=== PATIENT | male | born 1955 | race Caucasian/White ===

== ENCOUNTER 2017-09-21 18:55 | Inpatient (IN) | payer OTHER ==
[~2017-09-21] VITALS: Ht 193 cm; Wt 85.7 kg
[2017-09-21] MEDS ORDERED: SODIUM CHLORIDE 0.9% 1000ML 1,000 ML IV ONE ×2 (19:45→21:30)
[2017-09-21] MEDS ORDERED: OPTIRAY 320 IV PRN (19:45)
--- NOTE | 2017-09-21 19:45 | EMERGENCY ROOM VISIT NOTE ---
ED Visit Note First contact with patient: 19:16 The patient was seen and examined with Fariba Belcher PA-C. I agree with the history, physical and findings. Please see the note for disposition and details.
[2017-09-21] MEDS ORDERED: PATIENT'S ALLERGY INFO NEEDS ENTERED SCH (20:00)
[2017-09-21 20:16] LABS: ISTAT CREATININE 4.3 mg/dl (0.6-1.3); ISTAT IONIZED CALCIUM 1.13 mmol/l (1.12-1.32); ISTAT POTASSIUM 5.1 mEq/L (3.3-5.0)
[2017-09-21 20:19] LABS: HEMATOCRIT 48.4 % (42-52); HEMOGLOBIN 16.8 g/dL (14.0-18.0); MEAN CELL VOLUME 83.2 fL (80-100); MEAN CORPUSCULAR HEMOGLOBIN 28.9 pg (25-34); MEAN CORPUSCULAR HGB CONC 34.7 g/dl (32-36); MEAN PLATELET VOLUME 10.9 fL (7.4-10.4); PLATELET COUNT 126 K/uL (130-400); RED CELL DISTRIBUTION WIDTH CV 14.6 % (11.5-14.5); WHITE BLOOD COUNT 21.68 K/uL (4.8-10.8)
[2017-09-21 20:25] LABS: INR 1.1 (0.9-1.1)
[2017-09-21 20:39] LABS: ALBUMIN 4.3 gm/dl (3.4-5.0); CALCIUM 8.8 mg/dl (8.5-10.1); CREATININE 4.04 mg/dl (0.60-1.40)
--- NOTE | 2017-09-21 20:55 | DIAGNOSTIC IMAGING REPORT ---
CT OF THE HEAD WITHOUT CONTRAST CLINICAL HISTORY: Fall. Altered mental status. COMPARISON STUDY: No previous studies for comparison. TECHNIQUE: Helical axial images of the head were obtained without IV contrast. Automated exposure control was utilized for the study. A dose lowering technique was utilized adhering to the principles of ALARA. FINDINGS: No acute intracranial hemorrhage, midline shift or mass effect is present. Ventricular system is unremarkable. Basilar cisterns are patent. Note is made of a 1.3 cm hypodensity which projects over the right lateral ventricle and right thalamus. This is chronic and of doubtful significance. Cerebellar atrophy is noted. There are no findings to suggest acute dural sinus thrombosis or acute territorial infarct. Postoperative findings within the left mastoid air cells are noted. There is no calvarial fracture. IMPRESSION: 1. No acute intracranial findings. 2. No calvarial fracture. Electronically signed by: Bolivar Owusu M.D. 09/21/2017 8:54 PM Dictated Date/Time: 09/21/2017 8:51 PM
[2017-09-21 20:59] LABS: INFLUENZA B ANTIGEN Neg for Influ B (NEG)
--- NOTE | 2017-09-21 20:59 | DIAGNOSTIC IMAGING REPORT ---
CT OF THE CERVICAL SPINE WITHOUT CONTRAST CLINICAL HISTORY: fall ? head/neck injury COMPARISON STUDY: No previous studies for comparison. TECHNIQUE: Helical axial images of the cervical spine were obtained without IV contrast. Sagittal and coronal reconstructions were viewed. A dose lowering technique was utilized adhering to the principles of ALARA. FINDINGS: Alignment of the cervical spine is anatomic. The craniocervical junction is intact. There is no acute cervical spine fracture. Facet joints are intact. There is no prevertebral edema. There is mild multilevel disc space narrowing with moderate osteophytosis and moderate multilevel facet arthrosis. IMPRESSION: No acute cervical spine fracture or subluxation. Electronically signed by: Bolivar Owusu M.D. 09/21/2017 8:58 PM Dictated Date/Time: 09/21/2017 8:55 PM
--- NOTE | 2017-09-21 21:08 | DIAGNOSTIC IMAGING REPORT ---
CT OF THE ABDOMEN AND PELVIS WITHOUT CONTRAST CLINICAL HISTORY: Altered mental status. Epigastric pain. COMPARISON STUDY: No previous studies for comparison. TECHNIQUE: Axial images of the abdomen and pelvis were obtained without IV contrast. Images were reviewed in the axial, sagittal, and coronal planes. A dose lowering technique was utilized adhering to the principles of ALARA. FINDINGS: Visualized portions of the lower chest demonstrate asymmetric atrophy of the left pectoralis muscle. The left upper extremity is not present as shown on wheel assembler tomogram. Evaluation of the abdomen and pelvis is suboptimal on this unenhanced exam. No pneumatosis, free air or portal venous gas is present. No biliary or pancreatic ductal dilatation is present. There are multiple gallstones. There is mild pericholecystic infiltration. There is no evidence for a bowel obstruction. No lymphadenopathy is present. There is no ascites. Chronic deformity of the right hip is noted with moderate to severe arthritis. No acute fracture within the lumbar spine or pelvis is identified. There is no hemoperitoneum. IMPRESSION: 1. Cholelithiasis and mild pericholecystic infiltration highly suggestive of acute cholecystitis. 2. No bowel obstruction. Electronically signed by: Bolivar Owusu M.D. 09/21/2017 9:06 PM Dictated Date/Time: 09/21/2017 8:58 PM
--- NOTE | 2017-09-21 21:17 | EMERGENCY ROOM VISIT NOTE ---
History First contact with patient: 19:16 Chief Complaint: FALL Stated Complaint: HEAD PAIN History of Present Illness The patient is a 62 year old male who presents to the Emergency Room with complaints of fall and altered mental status that occurred earlier today. The patient has a history of CVA in 1988. He has residual left-sided weakness. He typically is able to get around on his own. The patient apparently had a fall near his bed. His said he was reportedly normal at approximately 7:50 AM this morning. She found him when she got off of work between 5 and 6 PM The patient is currently altered. The history is therefore limited. He is able to tell me that he is having some pain in his right hip. He also says that he was dizzy prior to his fall. He denies any chest pain or difficulty breathing. No recent illnesses. The patient's notes that he was incontinent of stool, which is very unusual. He has also been very drowsy-also unusual. 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 Social History Smoking Status: Former Smoker Housing Status: lives with family Current/Historical Medications No Active Prescriptions or Reported Meds Physical Exam Vital Signs Date Time Temp Pulse Resp B/P (MAP) Pulse Ox O2 Delivery O2 Flow Rate FiO2 09/21/17 23:31 90 20 116/76 99 Room Air 09/21/17 23:00 133/75 09/21/17 22:57 90 09/21/17 22:55 90 20 99 09/21/17 22:30 129/81 09/21/17 22:13 113/70 09/21/17 21:55 89 23 97 09/21/17 20:55 86 23 97 09/21/17 20:54 85 20 129/83 96 Room Air 09/21/17 19:10 36.5 90 20 151/94 96 Room Air Physical Exam VITALS: Vitals are noted on the nurse's note and reviewed by myself. Vital signs stable. GENERAL: 62-year-old male, appears older than stated age, very drowsy, thin, SKIN: Ecchymosis noted to the right lateral hip. There are areas of blotchy edema to the dorsal aspect of the feet bilaterally. There is also petechiae on the heels bilaterally. HEAD: Normocephalic atraumatic. Muscle wasting noted EYES: Pupils equal round and reactive to light and accommodation. Conjunctivae are significantly injected bilaterally. Extraocular muscles intact. MOUTH: Mucous membranes dry. NECK: Supple without nuchal rigidity. No lymphadenopathy. Cervical spine is nontender. No JVD. HEART: Regular rate and rhythm without murmurs gallops or rubs. LUNGS: Clear to auscultation bilaterally without wheezes, rales or rhonchi. No accessory muscle use. ABDOMEN: Bowel sounds present, but hypoactive. Tenderness to palpation in the epigastric region. Without organomegaly. No guarding or rebound tenderness. MUSCULOSKELETAL: Strength of the right upper extremity is 5/5. Strength of the right lower extremity is 5/5. Strength left lower extremity 2/5. Exam is limited as the patient is only following some commands. Mild tenderness to palpation over the dorsal aspect of the feet bilaterally. NEURO: Patient was alert and answering some questions appropriately. Left- sided weakness noted. Following intermittent commands. Slurred speech. Medical Decision & Procedures ER Provider Diagnostic Interpretation: hip/pelvis/femur/foot xrays IMPRESSION: No acute fracture or dislocation within the left foot. Electronically signed by: Bolivar Owusu M.D. 09/21/2017 9:49 PM Dictated Date/Time: 09/21/2017 9:48 PM The status of this report is Signed. Draft = Not yet reviewed or approved by Radiologist. Signed = Reviewed and approved by Radiologist. IMPRESSION: No acute fracture or dislocation within the right foot. Electronically signed by: Bolivar Owusu M.D. 09/21/2017 9:48 PM Dictated Date/Time: 09/21/2017 9:46 PM IMPRESSION: 1. No acute fracture of the right femur. 2. 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 Electronically signed by: Bolivar Owusu M.D. 09/21/2017 9:46 PM Dictated Date/Time: 09/21/2017 9:45 PM IMPRESSION: 1. No acute fracture of the right femur. 2. 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 Electronically signed by: Bolivar Owusu M.D. 09/21/2017 9:46 PM Dictated Date/Time: 09/21/2017 9:45 PM CXR IMPRESSION: 1. No acute cardiopulmonary findings. 2. Cholelithiasis. Electronically signed by: Bolivar Owusu M.D. 09/21/2017 9:43 PM Dictated Date/Time: 09/21/2017 9:[address] without contrast IMPRESSION: 1. No acute intracranial findings. 2. No calvarial fracture. Electronically signed by: Bolivar Owusu M.D. 09/21/2017 8:54 PM Dictated Date/Time: 09/21/2017 8:[address] C-spine without contrast IMPRESSION: No acute cervical spine fracture or subluxation. Electronically signed by: Bolivar Owusu M.D. 09/21/2017 8:58 PM Dictated Date/Time: 09/21/2017 8:55 PM The status of this report is Signed. Draft = Not yet reviewed or approved by Radiologist. Signed = Reviewed and approved by Radiologist. <AttendingPhy></AttendingPhy> <FamilyPhy>No Doctor, Assigned</FamilyPhy> < PrimaryPhy>No Doctor, Assigned</PrimaryPhy> <UnitNumber>[id number]</UnitNumber> <VisitNumber>[id number]</VisitNumber> <PatientName>ALAN SANTIAGO</ PatientName> <DateOfBirth>1955</DateOfBirth> <Location>[facility]</Location> < ServiceDate>09/21/17</ServiceDate> <MNE>ESINDI</MNE> <OrderingPhy>Fariba Belcher PA-C</OrderingPhy> <OrderingPhyMNE>f rep ord dr galvan</OrderingPhyMNE> < DictatingPhyMNE>f rep dict dr galvan</DictatingPhyMNE> <CCListMNE>f rep ct delmye</ CCListMNE> <AdmittingPhyMNE>f pt admit dr galvan</AdmittingPhyMNE> <AttendingPhyMNE >f pt attend dr galvan</AttendingPhyMNE> <ConsultingPhyMNE>f pt consult dr galvan</ConsultingPhyMNE> <FamilyPhyMNE>f pt fam dr galvan</FamilyPhyMNE> <OtherPhyMNE>f pt other dr galvan</OtherPhyMNE> < PrimaryPhyMNE>f pt prim care dr galvan</PrimaryPhyMNE> <ReferringPhyMNE>f pt referring dr galvan</ReferringPhyMNE> CT abdomen and pelvis without contrast IMPRESSION: 1. Cholelithiasis and mild pericholecystic infiltration highly suggestive of acute cholecystitis. 2. No bowel obstruction. Electronically signed by: Bolivar Owusu M.D. 09/21/2017 9:06 PM Dictated Date/Time: 09/21/2017 8:58 PM Laboratory Results 09/21/17 19:52 Red Blood Count 5.82, Mean Corpuscular Volume 83.2, Mean Corpuscular Hemoglobin 28.9, Mean Corpuscular Hemoglobin Concent 34.7, Mean Platelet Volume 10.9, Neutrophils (%) (Auto) 82.7, Lymphocytes (%) (Auto) 9.0, Monocytes (%) (Auto) 7.7, Eosinophils (%) (Auto) 0.0, Basophils (%) (Auto) 0.1, Neutrophils # (Auto) 17.93, Lymphocytes # (Auto) 1.96, Monocytes # (Auto) 1.66, Eosinophils # (Auto) 0.00, Basophils # (Auto) 0.03 Test 09/21/17 19:50 09/21/17 19:52 09/21/17 20:03 09/21/17 22:15 Influenza Type A Antigen Neg for Influ A (NEG) Influenza Type B Antigen Neg for Influ B (NEG) White Blood Count 21.68 K/uL (4.8-10.8) Red Blood Count 5.82 M/uL (4.7-6.1) Hemoglobin 16.8 g/dL (14.0-18.0) Hematocrit 48.4 % (42-52) Mean Corpuscular Volume 83.2 fL (80-100) Mean Corpuscular Hemoglobin 28.9 pg (25-34) Mean Corpuscular Hemoglobin Concent 34.7 g/dl (32-36) Platelet Count 126 K/uL (130-400) Mean Platelet Volume 10.9 fL (7.4-10.4) Neutrophils (%) (Auto) 82.7 % Lymphocytes (%) (Auto) 9.0 % Monocytes (%) (Auto) 7.7 % Eosinophils (%) (Auto) 0.0 % Basophils (%) (Auto) 0.1 % Neutrophils # (Auto) 17.93 K/uL (1.4-6.5) Lymphocytes # (Auto) 1.96 K/uL (1.2-3.4) Monocytes # (Auto) 1.66 K/uL (0.11-0.59) Eosinophils # (Auto) 0.00 K/uL (0-0.5) Basophils # (Auto) 0.03 K/uL (0-0.2) RDW Standard Deviation 44.0 fL (36.4-46.3) RDW Coefficient of Variation 14.6 % (11.5-14.5) Immature Granulocyte % (Auto) 0.5 % Immature Granulocyte # (Auto) 0.10 K/uL (0.00-0.02) Red Blood Cell Morphology Unremarkable Prothrombin Time 11.4 SECONDS (9.0-12.0) Prothromb Time International Ratio 1.1 (0.9-1.1) Activated Partial Thromboplast Time 38.0 SECONDS (21.0-31.0) Partial Thromboplastin Ratio 1.5 Est Creatinine Clear Calc Drug Dose 20.9 ml/min Lactic Acid Level 2.0 mmol/L (0.4-2.0) Creatine Kinase MB 545.0 ng/ml (0.5-3.6) Creatine Kinase MB Ratio 0.6 (0-3.0) Lipase 99 U/L (73-393) Thyroid Stimulating Hormone (TSH) 2.230 uIu/ml (0.300-4.500) Bedside Hemoglobin 16.0 g/dl (14.0-18.0) Bedside Hematocrit 47 % (42-52) Bedside Sodium 147 mEq/L (135-144) Bedside Potassium 5.1 mEq/L (3.3-5.0) Bedside Chloride 111 mEq/L (101-112) Bedside Total CO2 21 mEq/l (24-31) Bedside Blood Urea Nitrogen 55 mg/dl (7-18) Bedside Creatinine 4.3 mg/dl (0.6-1.3) Bedside Glucose (other) 99 mg/dl (70-99) Bedside Ionized Calcium (José Miguel) 1.13 mmol/l (1.12-1.32) Urine Color DK YELLOW Urine Appearance CLOUDY (CLEAR) Urine pH 5.0 (4.5-7.5) Urine Specific Hollis 1.028 (1.000-1.030) Urine Protein 2+ (NEG) Urine Glucose (UA) NEG (NEG) Urine Ketones TRACE (NEG) Urine Occult Blood 3+ (NEG) Urine Nitrite POS (NEG) Urine Bilirubin NEG (NEG) Urine Urobilinogen NEG (NEG) Urine Leukocyte Esterase SMALL (NEG) Urine WBC (Auto) 0 /hpf (0-5) Urine RBC (Auto) 10-30 /hpf (0-4) Urine Hyaline Casts (Auto) 1-5 /lpf (0-5) Urine Epithelial Cells (Auto) 5-10 /lpf (0-5) Urine Bacteria (Auto) NEG (NEG) Urine Opiates Screen NEG (NEG) Urine Methadone, Qualitative NEG (NEG) Urine Barbiturates NEG (NEG) Urine Phencyclidine (PCP) Level NEG (NEG) Ur Amphetamine/Methamphetamine NEG (NEG) MDMA (Ecstasy) Screen NEG (NEG) Urine Benzodiazepines Screen NEG (NEG) Urine Cocaine Metabolite NEG (NEG) Urine Marijuana (THC) NEG (NEG) Test 09/21/17 22:21 09/21/17 23:27 09/21/17 23:28 Direct Bilirubin 0.2 mg/dl (0-0.2) Acetaminophen Level < 2 ug/ml (10-30) Ammonia 14.3 umol/L (11-32) Hepatitis B Surface Antigen NEG (NEG) Ethyl Alcohol mg/dL < 3.0 mg/dl (0-3) Medications Administered Medications (Trade) Dose Ordered Sig/Grady Route Start Time Stop Time Status Last Admin Dose Admin Sodium Chloride 1,000 ml @ 999 mls/hr Q1H1M ONCE IV 09/21/17 19:45 09/21/17 20:45 DC 09/21/17 19:45 999 MLS/HR Miscellaneous Information (Patient'S Allergy Info Needs Entered) 1 ea Q30M N/A 09/21/17 20:00 09/21/17 22:50 DC 09/21/17 20:00 1 EA Piperacillin Sod/ Tazobactam Sod (Zosyn Iv) 3.375 gm NOW STAT IV 09/21/17 21:23 09/21/17 21:24 DC 09/21/17 22:12 3.375 GM Sodium Chloride 1,000 ml @ 999 mls/hr Q1H1M ONCE IV 09/21/17 21:30 09/21/17 22:30 DC 09/21/17 21:53 999 MLS/HR Sodium Chloride 1,000 ml @ 250 mls/hr Q4H IV 09/21/17 22:45 10/21/17 22:44 09/21/17 23:41 250 MLS/HR Aspirin (Aspirin Chew) 81 mg NOW STAT PO 09/21/17 23:28 09/21/17 23:29 DC 09/21/17 23:41 81 MG ECG Indication: weakness Rate (beats per minute): 86 Rhythm: normal sinus Findings: PAC ED Course Patient was seen and examined Vital signs including blood pressure were reviewed medications list was verified with patient Labs were obtained, and a saline lock was established An EKG was performed and reviewed by myself and my supervising physician. The patient was put on a monitor. He was hydrated with 1 L of normal saline. Imaging was performed and reviewed The patient was reassessed. He was sleeping in bed. I thoroughly discussed the results with the patient's family. They voiced understanding. A Shea catheter was inserted The patient was given 1 dose of Zosyn 3.375 mg IV. He was also hydrated with an additional liter of normal saline. The case was discussed with Dr. Guerrero from general surgery. It was also then subsequently discussed with the family, the charge nurse and case management I spoke with Dr. Garduno from [facility] service, who kindly agreed to admit the patient for further workup and treatment Medical Decision Differential diagnosis: Metabolic encephalopathy, rhabdomyolysis, cardiac arrhythmia, infarction, infectious etiology, acute intracranial abnormality, acute intra-abdominal abnormality This patient is a 62-year-old male that presents to emergency department with a fall and altered mental status per family. The patient was last found normal at 7:50 AM. He was found altered and on the floor after 5 PM this afternoon. On exam, the patient did have slurred speech. It is possible that this is new. The patient is unfortunately not a candidate for TPA as it has been greater than 8 hours since he was found acting normally. His CT of the head is negative for any acute findings. He also had tenderness in the epigastric region. He had a bruise on the right hip. He appeared dehydrated. His labs are significant for leukocytosis of 21, 000. He is in acute renal failure with a creatinine above 4. His CK is significantly elevated. He is likely in rhabdomyolysis causing renal failure. The patient's liver function tests are also significantly abnormal. I performed a CT of the abdomen and pelvis as he had tenderness in the epigastric region. This was concerning for findings consistent with acute cholecystitis. This case was discussed then with general surgery. They recommended transferring the patient. This was discussed at length with the family. Unfortunately, we are unable to arrange transfer for the patient this evening. The patient was aggressively hydrated in the emergency department. He was covered with antibiotics. At this point, the patient's vital signs are stable. The patient will be admitted to the hospitalist service for further workup and treatment. This chart was completed in part utilizing [employer] Speech Voice Recognition software. Attempts were made to minimize the grammatical errors, random word insertions, pronoun errors and incomplete sentences. Any formal questions or concerns about the content, text or information contained within the body of this dictation should be directly addressed to the provider for clarification. Medication Reconcilliation Current Medication List: was personally reviewed by me Blood Pressure Screening Patient's blood pressure: Normal blood pressure Impression Primary Impression: Altered mental status Critical Care I have personally spent greater than 30 minutes of critical care time in the direct management of this patient. This includes bedside care, interpretation of diagnostic studies, and testing, discussion with consultants, patient, and family members, and other required patient management activities. This 30 minutes is in excess of all separately billable procedures. Departure Information Dispostion Admitted as an inpatient Prescriptions No Active Prescriptions or Reported Meds Referrals No Doctor, Assigned (PCP) Patient Instructions My [facility]
[2017-09-21 21:18] LABS: TOTAL PROTEIN 8.1 gm/dl (6.4-8.2)
[2017-09-21] MEDS ORDERED: PIPERACILLIN/TAZOBACTAM 3.375 GM/100ML D5W IV STA (21:23)
[2017-09-21 21:25] LABS: BASO % 0.1 %; BASO ABS # 0.03 K/uL (0-0.2); LYMPH ABS # 1.96 K/uL (1.2-3.4); MONO % 7.7 %; MONO ABS # 1.66 K/uL (0.11-0.59); NEUT % 82.7 %; NEUT ABS # 17.93 K/uL (1.4-6.5)
--- NOTE | 2017-09-21 21:44 | DIAGNOSTIC IMAGING REPORT ---
CHEST ONE VIEW PORTABLE CLINICAL HISTORY: AMS fall COMPARISON STUDY: No previous studies for comparison. FINDINGS: Lung volumes are normal. Lungs are clear. There is no evidence for pulmonary edema. The left upper extremity is not visualized. Cardiac size is normal. Mediastinal contours are normal. Gallstones within the gallbladder noted. IMPRESSION: 1. No acute cardiopulmonary findings. 2. Cholelithiasis. Electronically signed by: Bolivar Owusu M.D. 09/21/2017 9:43 PM Dictated Date/Time: 09/21/2017 9:41 PM
--- NOTE | 2017-09-21 21:46 | DIAGNOSTIC IMAGING REPORT ---
R PELVIS/UNILATERAL HIP 2-3VIEWS CLINICAL HISTORY: Right hip pain following fall. COMPARISON: None FINDINGS: Sacroiliac joints and symphysis pubis are intact. Right acetabulum is shallow. Flattening of the right femoral head is noted. There is moderate to severe joint space narrowing of the right hip. There is no acute fracture. IMPRESSION: 1. No acute fracture within the pelvis or hips. 2. Chronic right hip deformity with shallow acetabulum and flattening of the right femoral head with moderate to severe osteoarthritis. Electronically signed by: Bolivar Owusu M.D. 09/21/2017 9:45 PM Dictated Date/Time: 09/21/2017 9:43 PM
--- NOTE | 2017-09-21 21:47 | DIAGNOSTIC IMAGING REPORT ---
R FEMUR 2 VIEWS ROUTINE CLINICAL HISTORY: Right hip pain following fall. COMPARISON: None FINDINGS: No acute fracture within the right femur is noted. A bony excrescence arising from the lateral mid shaft of the right femur measuring 4.3 cm is chronic. Flattening of the right femoral head with a shallow right acetabulum is noted. Alignment of the right knee is anatomic with no evidence for right knee joint effusion. IMPRESSION: 1. No acute fracture of the right femur. 2. 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 Electronically signed by: Bolivar Owusu M.D. 09/21/2017 9:46 PM Dictated Date/Time: 09/21/2017 9:45 PM
--- NOTE | 2017-09-21 21:49 | DIAGNOSTIC IMAGING REPORT ---
R FOOT MIN 3 VIEWS ROUTINE CLINICAL HISTORY: Right foot pain following fall. COMPARISON: None FINDINGS: Tarsometatarsal joints are intact. No acute fracture within the right foot is identified. IMPRESSION: No acute fracture or dislocation within the right foot. Electronically signed by: Bolivar Owusu M.D. 09/21/2017 9:48 PM Dictated Date/Time: 09/21/2017 9:46 PM
--- NOTE | 2017-09-21 21:50 | DIAGNOSTIC IMAGING REPORT ---
L FOOT MIN 3 VIEWS ROUTINE CLINICAL HISTORY: Left foot pain following fall. COMPARISON: None FINDINGS: Tarsometatarsal joints are intact. No acute fracture within the left foot is identified. IMPRESSION: No acute fracture or dislocation within the left foot. Electronically signed by: Bolivar Owusu M.D. 09/21/2017 9:49 PM Dictated Date/Time: 09/21/2017 9:48 PM
[2017-09-21] MEDS ORDERED: SODIUM CHLORIDE 0.45% 1000ML 1,000 ML IV SCH (22:45)
[2017-09-21] MEDS ORDERED: ASPIRIN 81 MG CHEW PO STA (23:28)
[2017-09-21] MEDS ORDERED: ACETAMINOPHEN 325 MG TAB PO PRN (23:45)
[2017-09-21] MEDS ORDERED: HYDROmorphone INJ 0.5 MG/0.5 ML SYR IV PRN (23:45)
[2017-09-21] MEDS ORDERED: OXYCODONE HCL IR 5 MG TAB (IMMEDIATE RELEASE) PO PRN (23:45)
[2017-09-21] MEDS ORDERED: PROCHLORPERAZINE INJ 5 MG in SYRINGE 4 ML IV PRN (23:45)
[2017-09-21] MEDS ORDERED: NITROGLYCERIN 0.4 MG SL PER TAB CHARGE SL PRN (23:45)
[2017-09-21] MEDS ORDERED: PHARMACIST DISCHARGE MED REC CONSULT PRN (23:45)
[2017-09-22] VITALS (33 sets, daily range): BP systolic 105–162; BP diastolic 8–89; PULSE 73–87; TEMP 36.4–36.9; O2SAT 91–99; Ht 193 cm; Wt 85.7 kg
[2017-09-22 00:50] LABS: ALBUMIN 3.2 gm/dl (3.4-5.0); CREATININE 4.1 mg/dl (0.60-1.40); POTASSIUM 4.8 mmol/L (3.5-5.1)
[2017-09-22 01:00] LABS: HEP C IGG 13 YRS+OLDER_RFLX NEG (NEG)
[2017-09-22] MEDS ORDERED: SODIUM CHLORIDE 0.45% 1000ML 1,000 ML IV ONE (01:00)
[2017-09-22 01:29] LABS: CALCIUM 7.4 mg/dl (8.5-10.1)
[2017-09-22] MEDS: SODIUM CHLORIDE 0.45% 1000ML 1,000 ML IV SCH ×2 (02:24→04:28)
--- NOTE | 2017-09-22 02:43 | HISTORY & PHYSICAL EXAMINATION ---
DATE OF ADMISSION: 09/21/2017 PRIMARY CARE DOCTOR: None. CHIEF COMPLAINT: Fall. HISTORY OF PRESENT ILLNESS: History obtained from patient, family, ER provider. Medical history significant for CVA, meningitis, hx electrocution injury, past tobacco abuse. Patient moved from [facility] to be closer to family in 2015. This morning as per patient, he got up to get something to drink and subsequently blacked out - unknown how long he was on the floor. Patient's found him around 5:00 p.m. little confused, speech somewhat slurred. Patient denies chest pain, shortness of breath. Denies abdominal pain, nausea, vomiting. No appetite concerns over the last few days. He was noted to have bowel incontinence as per . Patient received IV fluids in the ER for rhabdomyolysis and Zosyn for possible cholecystitis. ER provider got in touch with general surgeon on-call who recommended transfer to tertiary care center for management of gallbladder issues in consideration of significant medical issues. Transfer currently precluded by unavailability of transport service. Patient's family unaware of kidney issues in the past. MEDICAL HISTORY: As above. 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 In 1988, he had meningitis secondary to an ear infection sp surgery. Developed stroke leading to left-sided weakness during meningitic illness as per family. Did not have to be on any stroke medications following discharge as "stroke was secondary to infection" as per family. SURGERIES: Left arm amputation, other orthopedic procedures. HOME MEDICATIONS: None. ALLERGIES: No known drug allergies. FAMILY HISTORY: Stroke. PERSONAL AND SOCIAL HISTORY: Past tobacco use. Denies recent alcoholic beverage intake. Disabled. REVIEW OF SYSTEMS: As per HPI. All 10 systems reviewed. All other ROS negative. PHYSICAL EXAMINATION: VITAL SIGNS: Blood pressure was noted to be 153/94 later 120/70, pulse rate 85 , RR 26, temperature 36.5, sats 96 on room air. GENERAL: Noted to be comfortable, no respiratory distress. Dysarthric. SKIN: Normal color, warm. HEENT: Alopecia. [place] palpebral conjunctivae. No ptosis. Dry mucosa. Subtle lip asymmetry (new as per family) NECK: Supple, nontender. CHEST: Clear to auscultation. No tenderness. HEART: Regular rate and rhythm, palpable LE pulses. ABDOMEN: Soft, nontender. EXTREMITIES: No edema. No gross deformity except for amputation stump on the left upper extremity. NEUROLOGIC: Coherent, dysarthria, subtle asymmetry. Decreased strength on the left lower extremity compared to the right (chronic as per family.) LABORATORY DATA: Hemoglobin 16, hematocrit 40, white cell count 21, platelets 126. Sodium 140, potassium 5, chloride 111, CO2 18, BUN 65, creatinine 4. Glucose was noted to be 92. Troponin 0.8. AST 1368, ALT 241. CPK 89,000. UA, nitrite positive. Occult blood Tylenol level less than 2. Alcohol level was less than 3. CT head, cerebral atrophy, no acute pathology. Cervical spine CT, no acute fracture or subluxation. CT abdomen and pelvis, cholelithiasis, mild pericholecystic infiltration, possible acute cholecystitis. No bowel obstruction. ASSESSMENT: 1. Dysarthria, new lip asymmetry. Possible recurrent cerebrovascular accident hx CVA in the setting of meningitis () as per family. 2. Unwitnessed syncopal event ? 2 to CVA ro orthostasis, cardiac dysfunction, seizures (w/ bowel incontinence account) 3. Acute renal failure, rhabdomyolysis secondary to fall 4. Abnormal CT abdomen - possible cholecystitis. Presentation somewhat atypical as patient denies abdominal pain and abdominal exam benign. possible sepsis. 5. ? UTI Patient denies symptoms 6. Past tobacco abuse. 7. 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 thrombocytopenia, unknown duration. PLAN: PCU PCU, neuro checks ASA for secondary stroke prevention for now. MRI/MRA of the head. Neurology consult, possible stroke (new onset dysarthria, lip asymmetry) May need additional stroke workup pending imaging results and Neurology eval. Follow CPK, creatinine response to IV fluids. Nephrology consult if without improvement after initial fluid bolus. syncope workup : check orthostatic VS, 2D echo, EEG. CS, Unasyn for now for possible cholecystitis Surgery consult RE possible cholecystitis. [ER provider had notified Dr. Guerrero (surgeon powertrain control systems engineer) of inability to transfer patient to tertiary center following his recommendations.] Will touchbase with surgeon about need for additional imaging to truly ascertain cholecystitis in light of patient's atypical presentation (benign abdomen, negative abdominal pain symptoms from onset as per patient/family account) DVT prophylaxis, SCDs RE thrombocytopenia. DNR. Patient's requesting for updates from provider. Mrs. Edu Byrd at [phone]. [facility]
[2017-09-22 05:07] LABS: HEMATOCRIT 40.5 % (42-52); HEMOGLOBIN 13.7 g/dL (14.0-18.0); MEAN CELL VOLUME 84.2 fL (80-100); MEAN CORPUSCULAR HEMOGLOBIN 28.5 pg (25-34); MEAN CORPUSCULAR HGB CONC 33.8 g/dl (32-36); MEAN PLATELET VOLUME 10.7 fL (7.4-10.4); PLATELET COUNT 102 K/uL (130-400); RED CELL DISTRIBUTION WIDTH CV 14.8 % (11.5-14.5); RED CELL DISTRIBUTION WIDTH SD 45.9 fL (36.4-46.3); WHITE BLOOD COUNT 17.94 K/uL (4.8-10.8)
[2017-09-22 05:57] LABS: BASO % 0.1 %; BASO ABS # 0.02 K/uL (0-0.2); IG# 0.08 K/uL (0.00-0.02); LYMPH % 6.9 %; LYMPH ABS # 1.24 K/uL (1.2-3.4); MONO % 12.2 %; MONO ABS # 2.19 K/uL (0.11-0.59); NEUT % 80.4 %; NEUT ABS # 14.41 K/uL (1.4-6.5)
[2017-09-22 06:09] LABS: ALBUMIN 3.1 gm/dl (3.4-5.0); CALCIUM 6.8 mg/dl (8.5-10.1); CREATININE 4.67 mg/dl (0.60-1.40); POTASSIUM 5.4 mmol/L (3.5-5.1); TOTAL PROTEIN 5.9 gm/dl (6.4-8.2)
[2017-09-22] MEDS ORDERED: DEXTROSE 50% 50 ML SYR IV ONE (06:15)
[2017-09-22] MEDS ORDERED: SODIUM CHLORIDE 0.9% 1000ML 1,000 ML IV ONE (06:15)
[2017-09-22] MEDS ORDERED: CALCIUM GLUCONATE 10% 2,000 MG in SODIUM CHLORIDE 0.9% 50ML 50 ML IV STA (06:21)
--- NOTE | 2017-09-22 06:29 | Surgery Consultation ---
Consultation Date of Consultation: Sep 22, 2017. Attending Physician: Low Moon MD History of Present Illness : History obtained from patient, ER provider. Medical history significant for CVA, meningitis, electrocution injury, past tobacco abuse, ear surgery. The patient moved from [place] to [facility] to be closer to family since 2015. This morning as per patient, he got up to get something to drink and subsequently blackout, unknown how long he was on the floor. The patient's found him around 5:00 p.m. little confused, somewhat slurred: The patient denies chest pain, shortness of breath. Denies abdominal pain, nausea, vomiting. No concerns over the last few days. He was noted to have urinary incontinence as per . The patient received IV fluids in the ER for rhabdomyolysis and Zosyn for possible cholecystitis. ER provider got in touch with surgery who recommended transfer to tertiary [facility] center for management of gallbladder issues; however, transfer currently precluded by unavailability of transport service. The patient's family aware of kidney issues in the past. I reviewed pt's H/P with pt, pt denies abdominal pain, no nausea, vomiting, no diarrhea. Past Medical/Surgical History Medical Problems: (1) Altered mental status Status: Acute Social History Smoking Status: Former Smoker Smokeless Tobacco Use: No Alcohol Use: none Drug Use: none Housing Status: lives with family Allergies Coded Allergies: No Known Allergies (Unverified , 09/21/17) Home Medications No Active Prescriptions or Reported Meds Current Inpatient Medications Current Inpatient Medications Medications (Trade) Dose Ordered Sig/Grady Route Start Time Stop Time Status Last Admin Dose Admin Ioversol (Optiray 320) 100 ml UD PRN IV 09/21/17 19:45 09/25/17 19:44 Acetaminophen (Tylenol Tab) 325 mg Q6H PRN PO 09/21/17 23:45 10/21/17 23:44 Nitroglycerin (Nitrostat Tab) 0.4 mg UD PRN SL 09/21/17 23:45 10/21/17 23:44 Hydromorphone HCl (Dilaudid Inj) 0.5 mg Q3H PRN IV 09/21/17 23:45 10/05/17 23:44 Oxycodone HCl (Roxicodone Immediate Rel Tab) 5 mg Q6H PRN PO 09/21/17 23:45 10/05/17 23:44 Prochlorperazine Edisylate 5 mg/ Syringe 5 ml @ 5 mls/min Q6H PRN IV 09/21/17 23:45 10/21/17 23:44 Aspirin (Ecotrin Tab) 81 mg QAM PO 09/22/17 09:00 10/22/17 08:59 Miscellaneous Information (Pharmacist Discharge Med Rec Consult) 1 ea UD PRN N/A 09/21/17 23:45 10/21/17 23:44 Ampicillin Sodium/ Sulbactam Sodium (Consult) 1 ea UD PRN N/A 09/22/17 09:00 10/22/17 08:59 Sodium Chloride 1,000 ml @ 500 mls/hr Q2H IV 09/22/17 02:00 09/22/17 09:59 09/22/17 04:28 500 MLS/HR Influenza Virus Vaccine Quadrival (Flucelvax Quad Vaccine) 0.5 ml ONCE ONCE IM. 09/22/17 08:00 09/22/17 08:01 Pneumococcal Polysaccharide Vaccine (Pneumovax-23 Inj) 25 mcg ONCE ONCE IM. 09/22/17 08:00 09/22/17 08:01 Review of Systems Constitutional: No fever, No chills, No sweats, No weight loss, No weakness, No fatigue, No problem reported Eyes: No worsening of vision, No eye pain, No redness, No discharge, No diplopia, No problem reported ENT: No hearing loss, No unusual epistaxis, No nasal symptoms, No sore throat, No tinnitus, No dental problems, No trouble swallowing, No problem reported Respiratory: No cough, No sputum, No wheezing, No shortness of breath, No dyspnea on exertion, No dyspnea at rest, No hemoptysis, No problem reported Cardiovascular: No chest pain, No orthopnea, No PND, No edema, No claudication , No palpitations, No problem reported Abdomen: No pain, No nausea, No vomiting, No diarrhea, No constipation, No GI bleeding, No problem reported Neurologic: + problem reported (CVA) Psychiatric: No depression symptoms, No anhedonism, No anxiety, No insomnia, No substance abuse, No problem reported Endocrine: No fatigue, No excessive thirst, No excessive urination, No problem reported Hematologic / Lymphatic: No abnormal bleeding/bruising, No clotting problems, No swollen lymph nodes, No night sweats, No problem reported Physical Exam Date Time Temp Pulse Resp B/P (MAP) Pulse Ox O2 Delivery O2 Flow Rate FiO2 09/22/17 04:00 36.4 83 18 120/71 (87) 97 Room Air 09/22/17 02:04 36.9 87 18 151/83 98 Room Air 09/21/17 23:31 90 20 116/76 99 Room Air 09/21/17 23:00 133/75 09/21/17 22:57 90 09/21/17 22:55 90 20 99 09/21/17 22:30 129/81 09/21/17 22:13 113/70 09/21/17 21:55 89 23 97 09/21/17 20:55 86 23 97 09/21/17 20:54 85 20 129/83 96 Room Air 09/21/17 19:10 36.5 90 20 151/94 96 Room Air General Appearance: WD/WN, no apparent distress Head: normocephalic Eyes: normal inspection ENT: normal ENT inspection Neck: supple, no adenopathy, no JVD Respiratory/Chest: chest non-tender, lungs clear, normal breath sounds Cardiovascular: regular rate, rhythm, no edema, no gallop, no JVD, no murmur Abdomen/GI: normal bowel sounds, non tender, soft, no organomegaly, no pulsatile mass Extremities/Musculoskelatal: normal inspection, no calf tenderness, normal capillary refill Neurologic/Psych: no motor/sensory deficits, alert, normal mood/affect Skin: normal color, warm/dry, no rash Lymphatic: no adenopathy Laboratory Results Last 24 Hours Test 09/21/17 19:50 09/21/17 19:52 09/21/17 20:03 09/21/17 22:15 Influenza Type A Antigen Neg for Influ A Influenza Type B Antigen Neg for Influ B White Blood Count 21.68 K/uL Red Blood Count 5.82 M/uL Hemoglobin 16.8 g/dL Hematocrit 48.4 % Mean Corpuscular Volume 83.2 fL Mean Corpuscular Hemoglobin 28.9 pg Mean Corpuscular Hemoglobin Concent 34.7 g/dl Platelet Count 126 K/uL Mean Platelet Volume 10.9 fL Neutrophils (%) (Auto) 82.7 % Lymphocytes (%) (Auto) 9.0 % Monocytes (%) (Auto) 7.7 % Eosinophils (%) (Auto) 0.0 % Basophils (%) (Auto) 0.1 % Neutrophils # (Auto) 17.93 K/uL Lymphocytes # (Auto) 1.96 K/uL Monocytes # (Auto) 1.66 K/uL Eosinophils # (Auto) 0.00 K/uL Basophils # (Auto) 0.03 K/uL RDW Standard Deviation 44.0 fL RDW Coefficient of Variation 14.6 % Immature Granulocyte % (Auto) 0.5 % Immature Granulocyte # (Auto) 0.10 K/uL Red Blood Cell Morphology Unremarkable Prothrombin Time 11.4 SECONDS Prothromb Time International Ratio 1.1 Activated Partial Thromboplast Time 38.0 SECONDS Partial Thromboplastin Ratio 1.5 Sodium Level 144 mmol/L Potassium Level 5.0 mmol/L Chloride Level 110 mmol/L Carbon Dioxide Level 18 mmol/L Anion Gap 16.0 mmol/L 22.0 mmol/L Blood Urea Nitrogen 55 mg/dl Creatinine 4.04 mg/dl Est Creatinine Clear Calc Drug Dose 20.9 ml/min Estimated GFR () 17.5 Estimated GFR (Non- 15.1 BUN/Creatinine Ratio 13.7 Random Glucose 92 mg/dl Lactic Acid Level 2.0 mmol/L Calcium Level 8.8 mg/dl Total Bilirubin 0.7 mg/dl Aspartate Amino Transf (AST/SGOT) 1368 U/L Alanine Aminotransferase (ALT/SGPT) 241 U/L Alkaline Phosphatase 94 U/L Total Creatine Kinase 07631 U/L Creatine Kinase MB 545.0 ng/ml Creatine Kinase MB Ratio 0.6 Troponin I 0.848 ng/ml Total Protein 8.1 gm/dl Albumin 4.3 gm/dl Globulin 3.8 gm/dl Albumin/Globulin Ratio 1.1 Lipase 99 U/L Thyroid Stimulating Hormone (TSH) 2.230 uIu/ml Bedside Hemoglobin 16.0 g/dl Bedside Hematocrit 47 % Bedside Sodium 147 mEq/L Bedside Potassium 5.1 mEq/L Bedside Chloride 111 mEq/L Bedside Total CO2 21 mEq/l Bedside Blood Urea Nitrogen 55 mg/dl Bedside Creatinine 4.3 mg/dl Bedside Glucose (other) 99 mg/dl Bedside Ionized Calcium (José Miguel) 1.13 mmol/l Urine Color DK YELLOW Urine Appearance CLOUDY Urine pH 5.0 Urine Specific [place] 1.028 Urine Protein 2+ Urine Glucose (UA) NEG Urine Ketones TRACE Urine Occult Blood 3+ Urine Nitrite POS Urine Bilirubin NEG Urine Urobilinogen NEG Urine Leukocyte Esterase SMALL Urine WBC (Auto) 0 /hpf Urine RBC (Auto) 10-30 /hpf Urine Hyaline Casts (Auto) 1-5 /lpf Urine Epithelial Cells (Auto) 5-10 /lpf Urine Bacteria (Auto) NEG Urine Opiates Screen NEG Urine Methadone, Qualitative NEG Urine Barbiturates NEG Urine Phencyclidine (PCP) Level NEG Ur Amphetamine/Methamphetamine NEG MDMA (Ecstasy) Screen NEG Urine Benzodiazepines Screen NEG Urine Cocaine Metabolite NEG Urine Marijuana (THC) NEG Test 09/21/17 22:21 09/21/17 23:27 09/21/17 23:28 09/22/17 04:33 Direct Bilirubin 0.2 mg/dl Acetaminophen Level < 2 ug/ml Ammonia 14.3 umol/L Hepatitis B Surface Antigen NEG Hepatitis C Antibody NEG Sodium Level 145 mmol/L 140 mmol/L Potassium Level 4.8 mmol/L 5.4 mmol/L Chloride Level 115 mmol/L 111 mmol/L Carbon Dioxide Level 15 mmol/L 17 mmol/L Anion Gap 15.0 mmol/L 12.0 mmol/L Blood Urea Nitrogen 58 mg/dl 66 mg/dl Creatinine 4.10 mg/dl 4.67 mg/dl Est Creatinine Clear Calc Drug Dose 20.6 ml/min 17.6 ml/min Estimated GFR () 17.1 14.6 Estimated GFR (Non- 14.8 12.6 BUN/Creatinine Ratio 14.2 14.1 Random Glucose 98 mg/dl 73 mg/dl Calcium Level 7.4 mg/dl 6.8 mg/dl Magnesium Level 2.6 mg/dl Total Bilirubin 0.6 mg/dl 0.6 mg/dl Aspartate Amino Transf (AST/SGOT) 1162 U/L 1255 U/L Alanine Aminotransferase (ALT/SGPT) 199 U/L 212 U/L Alkaline Phosphatase 71 U/L 73 U/L Total Creatine Kinase 70043 U/L Troponin I 0.752 ng/ml Total Protein 6.0 gm/dl 5.9 gm/dl Albumin 3.2 gm/dl 3.1 gm/dl Globulin 2.8 gm/dl 2.8 gm/dl Albumin/Globulin Ratio 1.1 1.1 Ethyl Alcohol mg/dL < 3.0 mg/dl White Blood Count 17.94 K/uL Red Blood Count 4.81 M/uL Hemoglobin 13.7 g/dL Hematocrit 40.5 % Mean Corpuscular Volume 84.2 fL Mean Corpuscular Hemoglobin 28.5 pg Mean Corpuscular Hemoglobin Concent 33.8 g/dl Platelet Count 102 K/uL Mean Platelet Volume 10.7 fL Neutrophils (%) (Auto) 80.4 % Lymphocytes (%) (Auto) 6.9 % Monocytes (%) (Auto) 12.2 % Eosinophils (%) (Auto) 0.0 % Basophils (%) (Auto) 0.1 % Neutrophils # (Auto) 14.41 K/uL Lymphocytes # (Auto) 1.24 K/uL Monocytes # (Auto) 2.19 K/uL Eosinophils # (Auto) 0.00 K/uL Basophils # (Auto) 0.02 K/uL RDW Standard Deviation 45.9 fL RDW Coefficient of Variation 14.8 % Immature Granulocyte % (Auto) 0.4 % Immature Granulocyte # (Auto) 0.08 K/uL Triglycerides Level 102 mg/dl Cholesterol Level 89 mg/dl HDL Cholesterol 42 mg/dl LDL Cholesterol, Calculated 27 mg/dl VLDL Cholesterol, Calculated 20 mg/dl Cholesterol/HDL Ratio 2.1 Assessment & Plan FINDINGS: Visualized portions of the lower chest demonstrate asymmetric atrophy of the left pectoralis muscle. The left upper extremity is not present as shown on clinical transplant coordinator tomogram. Evaluation of the abdomen and pelvis is suboptimal on this unenhanced exam. No pneumatosis, free air or portal venous gas is present. No biliary or pancreatic ductal dilatation is present. There are multiple gallstones. There is mild pericholecystic infiltration. There is no evidence for a bowel obstruction. No lymphadenopathy is present. There is no ascites. Chronic deformity of the right hip is noted with moderate to severe arthritis. No acute fracture within the lumbar spine or pelvis is identified. There is no hemoperitoneum. IMPRESSION: 1. Cholelithiasis and mild pericholecystic infiltration highly suggestive of acute cholecystitis. 2. No bowel obstruction. assessment: pt is a 62 year old who was found on the floor, with Acute renal failure,, rhabdomyolysis. CT scan finding see above, base on pt has no abdominal pain, no nausea, no vomiting, acute cholecystitis is not likely. pt needs more study, such U/S study, MRCP, if positive for acute cholecystitis, I recommend intervention radiologist to do cholecystomy, no IR in this hospital , pt needs transfer to higher level care. Thanks,
[2017-09-22] MEDS ORDERED: INSULIN HUMAN REGULAR PER UNIT 5 UNITS in SYRINGE 4.95 ML IV STA (06:33)
--- NOTE | 2017-09-22 06:55 | DIAGNOSTIC IMAGING REPORT ---
MR ANGIOGRAPHY OF THE [place] NO CONTRAST CLINICAL HISTORY: stroke COMPARISON STUDY: None. A 3-D [id number] MR angiographic sequence of the [place] was performed. Both the source and projection images were reviewed. The examination is moderately compromised due to motion artifact. There is no evidence of major intracranial branch occlusion. There is no evidence of intracranial stenosis. There are no lesions suspicious for aneurysm. IMPRESSION: 1. Examination compromised due to motion artifact 2. No significant abnormalities identified. Electronically signed by: Trenton Desir M.D. 09/22/2017 6:53 AM Dictated Date/Time: 09/22/2017 6:51 AM
[2017-09-22] MEDS: AMPICILLIN/SULBACTAM SOD INJ 3,000 MG in SODIUM CHLORIDE 0.9% 100ML 100 ML IV SCH ×2 (07:00→21:51)
--- NOTE | 2017-09-22 07:07 | DIAGNOSTIC IMAGING REPORT ---
MRI OF THE BRAIN WITHOUT IV CONTRAST CLINICAL HISTORY: Strokelike symptoms. COMPARISON STUDY: CT of the brain performed 09/21/2017. TECHNIQUE: MRI of the brain was performed utilizing various T1 and T2-weighted sequences in the axial, sagittal, and coronal planes. IV contrast was not administered for this examination. FINDINGS: Brain parenchyma: There is a small focus of restricted diffusion identified in the left cerebellar hemisphere consistent with an acute to subacute lacunar infarct. No additional foci of restricted diffusion are identified. There are age-related involutional changes noting mild subcortical and periventricular microangiopathic disease. A large chronic lacunar infarct is seen within the right thalamus. [place] degeneration is noted in the right jany. There is no hemorrhage or mass effect. Moore-white matter differentiation is preserved. No extra-axial fluid collection is seen. The cerebellar tonsils are normal in configuration. Ventricles, sulci, and cisterns: Prominent secondary to involutional change. Pituitary and sella: Unremarkable. Intracranial vasculature: Normal flow voids are maintained at the skull base. Orbits: The bony orbits are grossly intact. Orbital contents are normal in appearance. Sinuses and mastoids: Clear. Calvarium: Unremarkable. Cervical cord: Partially visualized cervical spinal cord is normal in morphology and signal intensity. IMPRESSION: 1. There is a small acute to subacute lacunar infarct identified in the left cerebellar hemisphere. 2. No additional foci of acute ischemia are identified. 3. There is no hemorrhage or mass effect. Electronically signed by: Dillan Barrios M.D. 09/22/2017 7:06 AM Dictated Date/Time: 09/22/2017 7:03 AM
[2017-09-22] MEDS: SODIUM CHLORIDE 0.9% 1000ML 1,000 ML IV SCH ×3 (07:20→12:09)
[2017-09-22] MEDS ORDERED: INFLUENZA VIRUS QUAD VACCINE 0.5 ML SYR IM. ONE (08:00)
[2017-09-22] MEDS ORDERED: PNEUMOCOCCAL POLYSACCHARIDES 25 MCG/0.5 ML VIAL/SYR IM. ONE (08:00)
[2017-09-22] MEDS ORDERED: PNEUMOCOCCAL ADMINISTRATION CHARGE ONE (08:00)
[2017-09-22] MEDS ORDERED: INFLUENZA ADMINISTRATION CHARGE ONE (08:00)
[2017-09-22] MEDS ORDERED: PERFLUTREN LIPID MICROSPHERE (DEFINITY) IV ONE (08:41)
[2017-09-22] MEDS ORDERED: AMPICILLIN/SULBACTAM CONSULT ACTIVE PRN (09:00)
[2017-09-22] MEDS ORDERED: CLOPIDOGREL BISULFATE 75 MG TAB PO SCH (09:00)
[2017-09-22 11:09] LABS: CALCIUM 6.9 mg/dl (8.5-10.1); CREATININE 5.03 mg/dl (0.60-1.40); POTASSIUM 4.4 mmol/L (3.5-5.1)
[2017-09-22] MEDS ORDERED: DEXTROSE 50% 50 ML SYR ONE (11:38)
[2017-09-22] MEDS: ATORVASTATIN 40 MG TAB PO SCH (12:02)
[2017-09-22] MEDS: ASPIRIN 81 MG ECTAB PO SCH (12:02)
[2017-09-22] MEDS ORDERED: NURSING VERBAL MED ORDER ONE ×2 (12:45→13:15)
--- NOTE | 2017-09-22 12:57 | DIAGNOSTIC IMAGING REPORT ---
CHEST ONE VIEW PORTABLE CLINICAL HISTORY: congestion? COMPARISON STUDY: Radiograph September 21, 2017. FINDINGS: Left upper extremity is not visualized. There is no pneumothorax. Cardiac size is normal. Mediastinal contours are normal. There are mild bibasilar opacities with possible trace bilateral pleural effusions. There is pulmonary vascular congestion without overt pulmonary edema. IMPRESSION: 1. Mild bibasilar opacities which favor atelectasis. Possible small bilateral pleural effusions. 2. Pulmonary vascular congestion. Electronically signed by: Bolivar Owusu M.D. 09/22/2017 12:56 PM Dictated Date/Time: 09/22/2017 12:55 PM
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
[2017-09-22] MEDS ORDERED: SODIUM CHLORIDE 0.9% 1000ML 1,000 ML IV SCH (14:00)
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
--- NOTE | 2017-09-22 15:10 | ELECTROENCEPHALOGRAPH REPORT ---
FOR: Scooter Álvarez MD CLINICAL DIAGNOSIS: Syncope with questionable seizure activity versus cerebrovascular accident. ELECTROENCEPHALOGRAM DIAGNOSIS: Essentially normal during wakefulness. DESCRIPTION OF TRACING: This recording was performed as a bedside study, is of good technical quality. A simultaneous video analysis of patient movement and behavior was obtained. Photic stimulation was performed. Hyperventilation was not. Drowsiness and light sleep were not recorded. Under these conditions, there was an evidence for normal appearing background rhythm in the alpha range of up to 9-10 Hz of maximum frequency and 30 microvolts of maximum amplitude. This is maximum in posterior head regions and bilaterally symmetrical. Polymorphic mid frequency theta activity is seen over all head regions without clear focal or regional predominance. Anterior head region maximum bilaterally symmetrical low voltage fast activity in the beta range is present. At no time during the waking tracing is there evidence for potentially epileptogenic activity in the form of polyspike or spike wave bursts, focal sharp waves or focal spikes. Photic stimulation provoked some modest driving response without a photomyogenic or photoparoxysmal component. INTERPRETATION: This EEG is essentially normal during wakefulness without evidence for focal or generalized encephalopathy and without evidence for potentially epileptogenic activity.
--- NOTE | 2017-09-22 15:45 | ECHOCARDIOGRAM REPORT ---
*NOTICE TO RECEIVING [facility] [employer] This information is strictly Confidential and protected under [place] law. [place] law prohibits you from making any further disclosure of this information unless further disclosure is expressly permitted by the written consent of the person to whom it pertains or is authorized by law. A general authorization for the release of medical or other information is not sufficient for this purpose. Hospital accepts no responsibility if the information is made available to any other person, INCLUDING THE PATIENT. Interpretation Summary * Name: ALAN SANTIAGO Study Date: 09/22/2017 07:51 AM BP: 120/71 mmHg * Patient Location: .MED\S\N285\S\2 HR: 83 * : 1955 (M/d/yyyy) Gender: Male Height: 73 in * Age: 62 yrs Ethnicity: CA Weight: 167 lb * Ordering Physician: Scooter Álvarez * Referring Physician: Self, Referred * Performed By: Lyssa Barros RDCS * * Reason For Study: Syncope * BSA: 2.0 m2 * Would consider a transesophageal echocardiogram if clinically indicated. * -- Conclusions -- * Elongated papillary muscle with doming of the mitral valve and doppler finds sugggeting mitral stenosis. * The left ventricle is normal in size. * Left ventricular systolic function is normal. * Ejection Fraction = 65-70%. * The right ventricular systolic function is normal. * The left atrial size is normal. * Right atrial size is normal. * Would consider a transesophageal echocardiogram to better evaluate the mitral valve if clinically indicated. Procedure Details * A complete two-dimensional transthoracic echocardiogram was performed (2D, M-mode, Doppler and color flow Doppler). * The study was technically difficult. * The study was technically difficult, but visualization was adequate with the administration of Definity ultrasound contrast. * A contrast injection of Definity was performed to improve assessment of LV function. * Contrast was injected into an intravenous site in the right arm. * One vial of Definity ultrasound contrast was diluted in normal saline to a total volume of 10 ml. A total of '2' ml of solution was administered during imaging. * Lot # [id number] of Definity utilized for procedure. * Expiration date . * The attending nurse who injected the contrast agent was Rosa Colvin RN. Left Ventricle * The left ventricle is normal in size. * There is normal left ventricular wall thickness. * Ejection Fraction = 65-70%. * Left ventricular systolic function is normal. * The left ventricular wall motion is normal. Right Ventricle * The right ventricle is normal size. * The right ventricular systolic function is normal. Atria * The left atrial size is normal. * Right atrial size is normal. * The interatrial septum is intact with no evidence for an atrial septal defect. Mitral Valve * Elongated papillary muscle with domeing of the mitral valve and doppler finds sugggewting mitral stenosis. Tricuspid Valve * The tricuspid valve anatomy is normal. * Significant tricuspid regurgitation is absent. Aortic Valve * The aortic valve is trileaflet. * The aortic valve opens well. * There is no significant aortic regurgitation. Pulmonic Valve * The pulmonic valve is not well visualized. Great Vessels * The aortic root and proximal ascending aorta are normal sized. Pericardium/Pleural * There is no pericardial effusion. MMode 2D Measurements and Calculations IVSd 0.84 cm IVSs 1.2 cm LVIDd 4.2 cm LVIDs 2.8 cm LVPWd 1.0 cm LVPWs 1.4 cm IVS/LVPW 0.80 FS 33.8 % EDV(Teich) 79.7 ml ESV(Teich) 29.5 ml EF(Teich) 63.0 % EDV(cubed) 75.4 ml ESV(cubed) 21.9 ml EF(cubed) 71.0 % % IVS thick 44.9 % % LVPW thick 30.0 % LV mass(C)d 127.5 grams LV mass(C)dI 64.0 grams/m\S\2 LV mass(C)s 111.3 grams LV mass(C)sI 55.8 grams/m\S\2 SV(Teich) 50.2 ml SI(Teich) 25.2 ml/m\S\2 SV(cubed) 53.5 ml SI(cubed) 26.8 ml/m\S\2 Ao root diam 3.2 cm Ao root area 8.2 cm\S\2 ACS 2.3 cm LA dimension 3.4 cm LA/Ao 1.1 LVOT diam 2.0 cm LVOT area 3.1 cm\S\2 LVAd ap4 23.7 cm\S\2 LVLd ap4 7.2 cm EDV(MOD-sp4) 63.9 ml EDV(sp4-el) 66.1 ml LVAs ap4 12.8 cm\S\2 LVLs ap4 6.9 cm ESV(MOD-sp4) 20.4 ml ESV(sp4-el) 20.3 ml EF(MOD-sp4) 68.1 % EF(sp4-el) 69.3 % LVAd ap2 22.0 cm\S\2 LVLd ap2 6.5 cm EDV(MOD-sp2) 63.2 ml EDV(sp2-el) 63.4 ml LVAs ap2 11.0 cm\S\2 LVLs ap2 6.0 cm ESV(MOD-sp2) 17.8 ml ESV(sp2-el) 17.2 ml EF(MOD-sp2) 71.8 % EF(sp2-el) 72.9 % LVLd %diff -11.58 % EDV(MOD-bp) 65.7 ml LVLs %diff -14.95 % ESV(MOD-bp) 20.4 ml EF(MOD-bp) 69.0 % SV(MOD-sp4) 43.5 ml SI(MOD-sp4) 21.8 ml/m\S\2 SV(MOD-sp2) 45.4 ml SI(MOD-sp2) 22.8 ml/m\S\2 SV(MOD-bp) 45.4 ml SI(MOD-bp) 22.8 ml/m\S\2 SV(sp4-el) 45.8 ml SI(sp4-el) 23.0 ml/m\S\2 SV(sp2-el) 46.2 ml SI(sp2-el) 23.2 ml/m\S\2 Doppler Measurements and Calculations MV E max arlyn 185.4 cm/sec MV A max arlyn 209.0 cm/sec MV E/A 0.89 MV V2 max 264.2 cm/sec MV max PG 27.9 mmHg MV V2 mean 174.3 cm/sec MV mean PG 13.4 mmHg MV V2 VTI 75.5 cm MV P1/2t max arlyn 220.4 cm/sec MV P1/2t 132.9 msec MVA(P1/2t) 1.7 cm\S\2 MV dec slope 485.6 cm/sec\S\2 MV dec time 0.45 sec Ao V2 max 153.2 cm/sec Ao max PG 9.4 mmHg Ao max PG (full) 6.3 mmHg JERROD(V,A) 1.8 cm\S\2 JERROD(V,D) 1.8 cm\S\2 LV V1 max PG 3.1 mmHg LV V1 max 88.6 cm/sec PA V2 max 103.5 cm/sec PA max PG 4.3 mmHg PI max arlyn 174.9 cm/sec PI max PG 12.2 mmHg PI dec slope 236.3 cm/sec\S\2 PI P1/2t 216.8 msec TR max arlyn 292.1 cm/sec
--- NOTE | 2017-09-22 15:49 | DIAGNOSTIC IMAGING REPORT ---
ABDOMINAL ULTRASOUND, RIGHT UPPER QUADRANT HISTORY: Epigastric pain.. COMPARISON: Abdomen and pelvis CT 09/21/2017 area FINDINGS: Pancreas: The pancreas demonstrates a normal echotexture. Liver: Unremarkable. Gallbladder: Multiple large gallstones. Gallbladder wall is mildly thickened measuring up to 4 mm. However, the technologist reported a negative sonographic Patel's sign. CBD: 5 mm. Right kidney: No hydronephrosis. IMPRESSION: Multiple gallstones with mild gallbladder wall thickening. However, the technologist reported a negative sonographic Patel's sign. By definition this study is therefore equivocal for acute cholecystitis. However, the findings of inflammatory change surrounding the gallbladder on the prior CT are concerning for acute cholecystitis. Clinical correlation recommended. Electronically signed by: Luis Enrique Avila M.D. 09/22/2017 3:47 PM Dictated Date/Time: 09/22/2017 3:44 PM
--- NOTE | 2017-09-22 16:04 | DIAGNOSTIC IMAGING REPORT ---
CAROTID ARTERY ULTRASOUND CLINICAL HISTORY: new stroke COMPARISON STUDY: None. TECHNIQUE: Real-time, grayscale, and color Doppler sonography of the carotid and vertebral arteries was performed. Images were viewed in the transverse and longitudinal planes. FINDINGS: There is mild atherosclerotic plaque. Velocity measurements are listed below. COMMON CAROTID PEAK SYSTOLIC VELOCITY (CM/S): RIGHT 92 LEFT 76 ICA PEAK SYSTOLIC VELOCITY (CM/S): RIGHT 75 LEFT 69 The systolic ratios between the internal to common carotid arteries were normal. Antegrade flow is seen in the vertebral arteries. The external carotid arteries are patent. Blood pressures were not obtained in this patient. IMPRESSION: No evidence of a hemodynamically significant stenosis. Electronically signed by: Bolivar Owusu M.D. 09/22/2017 4:03 PM Dictated Date/Time: 09/22/2017 4:02 PM
--- NOTE | 2017-09-22 16:42 | DIAGNOSTIC IMAGING REPORT ---
CHEST ONE VIEW PORTABLE CLINICAL HISTORY: 62 years-old Male presenting with HD CATH PLACEMENT. TECHNIQUE: Portable upright AP view of the chest was obtained. COMPARISON: 09/22/2017. FINDINGS: The patient is CAMBODIAN rotated. Right internal jugular single lumen catheter terminates in the mid SVC. Cardiac silhouette normal in size. Pulmonary vasculature is unchanged. Minimal right basilar opacity, possibly small left right pleural effusion. Left lung and pleural space essentially clear and slightly hyperinflated in comparison to the right. Osseous structures normal. Upper abdomen normal. IMPRESSION: 1. Interval placement of right IJ central venous catheter. No pneumothorax. 2. Small right pleural effusion and right basilar atelectasis may be present. Electronically signed by: Clarke Mike M.D. 09/22/2017 4:40 PM Dictated Date/Time: 09/22/2017 4:38 PM
[2017-09-22 17:10] LABS: CALCIUM 6.5 mg/dl (8.5-10.1); CREATININE 5.78 mg/dl (0.60-1.40); POTASSIUM 4.4 mmol/L (3.5-5.1)
--- NOTE | 2017-09-22 17:33 | Procedure Note ---
Procedure Note Procedure Date Sep 22, 2017. Central Line Procedure time out: side/site verified, patient ID confirmed, sterile procedure used Consent obtained: written Time of procedure: 15:00 Performed by: attending Indications: other (temporary hemodialysis catheter) Prep: chlorhexadine prep, sterile drape, sterile procedures used Anesthesia: lidocaine 1% without epi Volume anesthetic (ml's): 3 Central line lumen: double Central line location: internal jugular (R) Additional details: ultrasound guidance, Selinger technique used, line sutured , good blood return CXR: appropriate position, no pneumothorax Complications: none Patient tolerated procedure: well Post-procedure vital signs: reviewed and stable Comments: Critical Care Medicine Point of Care Bedside Ultrasound Procedure: Procedural Ultrasound Procedure Date: 09/22/2016 Indication: Acute kidney injury anuria, temporary hemodialysis catheter placement Attending: Gladys Marin DO Artery AND Vein visualized: Yes Compressible Vein: y Guidewire or Short Catheter seen in vein prior to dilation: y Impression: Successful placement of right internal jugular temporary hemodialysis catheter Plan: Reviewed chest x-ray, okay to use Images obtained are saved for permanent record
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
[2017-09-22] MEDS ORDERED: CALCIUM GLUCONATE 10% 2,000 MG in SODIUM CHLORIDE 0.9% 50ML 50 ML IV ONE (18:30)
[2017-09-22] MEDS: SODIUM BICARBONATE 8.4% INJ 150 MEQ in DEXTROSE 5% 1000ML 1,000 ML IV SCH (18:42)
--- NOTE | 2017-09-22 21:08 | Dialysis Progress Note ---
Nephrology Dialysis Note Date of Service: Sep 22, 2017. Subjective seen on HD; tolerating so far maintained; catheter running well Objective Date Time Temp Pulse Resp B/P (MAP) Pulse Ox O2 Delivery O2 Flow Rate FiO2 09/22/17 20:30 78 136/80 09/22/17 20:15 79 162/89 09/22/17 20:00 77 146/79 09/22/17 19:45 77 142/81 09/22/17 19:30 83 133/80 09/22/17 19:25 36.9 80 124/8 (46) 09/22/17 18:00 82 20 129/76 (93) 94 Room Air 09/22/17 16:00 96 Room Air 09/22/17 16:00 36.8 75 20 150/81 (104) 99 Room Air 09/22/17 13:43 36.7 80 20 97 09/22/17 12:29 97 Room Air 09/22/17 11:19 36.7 80 20 130/72 (91) 95 09/22/17 09:02 36.6 82 20 130/72 (91) 94 09/22/17 08:00 97 Room Air 09/22/17 07:38 36.7 79 20 105/66 (79) 95 09/22/17 04:00 36.4 83 18 120/71 (87) 97 Room Air 09/22/17 04:00 97 Room Air 09/22/17 04:00 97 Room Air 09/22/17 02:04 36.9 87 18 151/83 98 Room Air 09/21/17 23:31 90 20 116/76 99 Room Air 09/21/17 23:00 133/75 09/21/17 22:57 90 09/21/17 22:55 90 20 99 09/21/17 22:30 129/81 09/21/17 22:13 113/70 09/21/17 21:55 89 23 97 09/21/17 20:55 86 23 97 09/21/17 20:54 85 20 129/83 96 Room Air Physical Exam: General Appearance: WD/WN, no apparent distress on RA, watching TV Eyes: EOMI ENT: hearing grossly normal (on R side; poor on L) Neck: supple Respiratory/Chest: lungs clear, + decreased breath sounds Cardiovascular: regular rate, rhythm, no edema Abdomen: normal bowel sounds, non tender, soft, + pertinent finding (oseguera w/ tea colored urine) Extremities: normal range of motion, non-tender Neurologic/Psych: alert, normal mood/affect, oriented x 3, + pertinent finding (able to participate in meaningful conversation; weak BL isaias L side) Skin: no jaundice, warm/dry Current Inpatient Medications Medications (Trade) Dose Ordered Sig/Grady Route Start Time Stop Time Status Last Admin Dose Admin Ioversol (Optiray 320) 100 ml UD PRN IV 09/21/17 19:45 09/25/17 19:44 Acetaminophen (Tylenol Tab) 325 mg Q6H PRN PO 09/21/17 23:45 10/21/17 23:44 Nitroglycerin (Nitrostat Tab) 0.4 mg UD PRN SL 09/21/17 23:45 10/21/17 23:44 Hydromorphone HCl (Dilaudid Inj) 0.5 mg Q3H PRN IV 09/21/17 23:45 10/05/17 23:44 Oxycodone HCl (Roxicodone Immediate Rel Tab) 5 mg Q6H PRN PO 09/21/17 23:45 10/05/17 23:44 Prochlorperazine Edisylate 5 mg/ Syringe 5 ml @ 5 mls/min Q6H PRN IV 09/21/17 23:45 10/21/17 23:44 Aspirin (Ecotrin Tab) 81 mg QAM PO 09/22/17 09:00 10/22/17 08:59 09/22/17 12:02 81 MG Miscellaneous Information (Pharmacist Discharge Med Rec Consult) 1 ea UD PRN N/A 09/21/17 23:45 10/21/17 23:44 Ampicillin Sodium/ Sulbactam Sodium (Consult) 1 ea UD PRN N/A 09/22/17 09:00 10/22/17 08:59 Ampicillin Sodium/ Sulbactam Sodium 3000 mg/Sodium Chloride 108 ml @ 216 mls/hr Q12H IV 09/22/17 07:00 09/29/17 06:59 09/22/17 07:00 216 MLS/HR Atorvastatin Calcium (Lipitor Tab) 40 mg QAM PO 09/22/17 09:00 10/22/17 08:59 09/22/17 12:02 40 MG Sodium Bicarbonate 150 meq/Dextrose 1,150 ml @ 200 mls/hr Q5H45M IV 09/22/17 18:45 10/22/17 18:44 09/22/17 18:42 200 MLS/HR Heparin Sodium (Porcine) (No Heparin In Dialysis) 1 ea TODAY@0600 N/A 09/23/17 06:00 09/23/17 23:59 Heparin Sodium (Porcine) (No Heparin In Dialysis) 1 ea TODAY@1830 N/A 09/22/17 18:30 09/22/17 23:59 Last 24 Hours Test 09/21/17 22:15 09/21/17 22:21 09/21/17 23:27 09/21/17 23:28 Urine Color DK YELLOW Urine Appearance CLOUDY Urine pH 5.0 Urine Specific [place] 1.028 Urine Protein 2+ Urine Glucose (UA) NEG Urine Ketones TRACE Urine Occult Blood 3+ Urine Nitrite POS Urine Bilirubin NEG Urine Urobilinogen NEG Urine Leukocyte Esterase SMALL Urine WBC (Auto) 0 /hpf Urine RBC (Auto) 10-30 /hpf Urine Hyaline Casts (Auto) 1-5 /lpf Urine Epithelial Cells (Auto) 5-10 /lpf Urine Bacteria (Auto) NEG Urine Opiates Screen NEG Urine Methadone, Qualitative NEG Urine Barbiturates NEG Urine Phencyclidine (PCP) Level NEG Ur Amphetamine/Methamphetamine NEG MDMA (Ecstasy) Screen NEG Urine Benzodiazepines Screen NEG Urine Cocaine Metabolite NEG Urine Marijuana (THC) NEG Direct Bilirubin 0.2 mg/dl Acetaminophen Level < 2 ug/ml Ammonia 14.3 umol/L Hepatitis B Surface Antigen NEG Hepatitis C Antibody NEG Sodium Level 145 mmol/L Potassium Level 4.8 mmol/L Chloride Level 115 mmol/L Carbon Dioxide Level 15 mmol/L Anion Gap 15.0 mmol/L Blood Urea Nitrogen 58 mg/dl Creatinine 4.10 mg/dl Est Creatinine Clear Calc Drug Dose 20.6 ml/min Estimated GFR () 17.1 Estimated GFR (Non- 14.8 BUN/Creatinine Ratio 14.2 Random Glucose 98 mg/dl Calcium Level 7.4 mg/dl Magnesium Level 2.6 mg/dl Total Bilirubin 0.6 mg/dl Aspartate Amino Transf (AST/SGOT) 1162 U/L Alanine Aminotransferase (ALT/SGPT) 199 U/L Alkaline Phosphatase 71 U/L Total Creatine Kinase 92119 U/L Troponin I 0.752 ng/ml Total Protein 6.0 gm/dl Albumin 3.2 gm/dl Globulin 2.8 gm/dl Albumin/Globulin Ratio 1.1 Ethyl Alcohol mg/dL < 3.0 mg/dl Test 09/22/17 04:33 09/22/17 07:31 09/22/17 09:59 09/22/17 11:14 White Blood Count 17.94 K/uL Red Blood Count 4.81 M/uL Hemoglobin 13.7 g/dL Hematocrit 40.5 % Mean Corpuscular Volume 84.2 fL Mean Corpuscular Hemoglobin 28.5 pg Mean Corpuscular Hemoglobin Concent 33.8 g/dl Platelet Count 102 K/uL Mean Platelet Volume 10.7 fL Neutrophils (%) (Auto) 80.4 % Lymphocytes (%) (Auto) 6.9 % Monocytes (%) (Auto) 12.2 % Eosinophils (%) (Auto) 0.0 % Basophils (%) (Auto) 0.1 % Neutrophils # (Auto) 14.41 K/uL Lymphocytes # (Auto) 1.24 K/uL Monocytes # (Auto) 2.19 K/uL Eosinophils # (Auto) 0.00 K/uL Basophils # (Auto) 0.02 K/uL RDW Standard Deviation 45.9 fL RDW Coefficient of Variation 14.8 % Immature Granulocyte % (Auto) 0.4 % Immature Granulocyte # (Auto) 0.08 K/uL Sodium Level 140 mmol/L 143 mmol/L Potassium Level 5.4 mmol/L 4.4 mmol/L Chloride Level 111 mmol/L 113 mmol/L Carbon Dioxide Level 17 mmol/L 13 mmol/L Anion Gap 12.0 mmol/L 16.0 mmol/L Blood Urea Nitrogen 66 mg/dl 65 mg/dl Creatinine 4.67 mg/dl 5.03 mg/dl Est Creatinine Clear Calc Drug Dose 17.6 ml/min 16.9 ml/min Estimated GFR () 14.6 13.4 Estimated GFR (Non- 12.6 11.6 BUN/Creatinine Ratio 14.1 12.9 Random Glucose 73 mg/dl 60 mg/dl Calcium Level 6.8 mg/dl 6.9 mg/dl Total Bilirubin 0.6 mg/dl Aspartate Amino Transf (AST/SGOT) 1255 U/L Alanine Aminotransferase (ALT/SGPT) 212 U/L Alkaline Phosphatase 73 U/L Total Creatine Kinase 06584 U/L Total Protein 5.9 gm/dl Albumin 3.1 gm/dl Globulin 2.8 gm/dl Albumin/Globulin Ratio 1.1 Triglycerides Level 102 mg/dl Cholesterol Level 89 mg/dl HDL Cholesterol 42 mg/dl LDL Cholesterol, Calculated 27 mg/dl VLDL Cholesterol, Calculated 20 mg/dl Cholesterol/HDL Ratio 2.1 Bedside Glucose 191 mg/dl 58 mg/dl Test 09/22/17 11:35 09/22/17 12:08 09/22/17 15:55 09/22/17 16:22 Bedside Glucose 63 mg/dl 136 mg/dl 54 mg/dl Sodium Level 140 mmol/L Potassium Level 4.4 mmol/L Chloride Level 112 mmol/L Carbon Dioxide Level 14 mmol/L Anion Gap 14.0 mmol/L Blood Urea Nitrogen 69 mg/dl Creatinine 5.78 mg/dl Est Creatinine Clear Calc Drug Dose 14.7 ml/min Estimated GFR () 11.3 Estimated GFR (Non- 9.8 BUN/Creatinine Ratio 11.9 Random Glucose 56 mg/dl Calcium Level 6.5 mg/dl Hepatitis B Surface Antibody NEG Test 09/22/17 16:24 09/22/17 16:57 09/22/17 18:29 Bedside Glucose 54 mg/dl 70 mg/dl 117 mg/dl Date/Time Source Procedure Growth Status 09/21/17 22:15 Urine , Clean Catch Urine Culture Pending Received Assessment & Plan 62 y/o M w/ remote stroke, baseline normal kidney function admitted overnight after being down for several hours with acute stroke, acute cholecystitis, rhabdomyolysis Oligoanuric ATN from rhabdomyolysis -for acute dialysis > first tx this evening w/ gentle flows, small dialyzer, short tx, no uf -next tx ordered for am -continue bicarb gtt at 200 mL hourly as tolerated Hypocalcemia -ordered iCa for am -goes w/ rhabdo -ordered 2 gm IV this evening Ca gluconate Acute cholecystitis -per surgery/primary service; ? candidate for IR intervention if any but not a great candidate until renal function, volume status stabilized Acute / subacute stroke -per primary and neuro services Appreciate consult; will follow with you.
[2017-09-23] VITALS (38 sets, daily range): BP systolic 129–170; BP diastolic 69–99; PULSE 74–98; TEMP 36.5–37.5; O2SAT 86–97
[2017-09-23] MEDS: SODIUM BICARBONATE 8.4% INJ 150 MEQ in DEXTROSE 5% 1000ML 1,000 ML IV SCH ×2 (01:33→07:10)
[2017-09-23 06:02] LABS: HEMATOCRIT 37.3 % (42-52); HEMOGLOBIN 12.7 g/dL (14.0-18.0); MEAN CELL VOLUME 81.6 fL (80-100); MEAN CORPUSCULAR HEMOGLOBIN 27.8 pg (25-34); RED CELL DISTRIBUTION WIDTH CV 14.7 % (11.5-14.5); WHITE BLOOD COUNT 11.39 K/uL (4.8-10.8)
--- NOTE | 2017-09-23 06:41 | Surgery Progress Note ---
Surgery Progress Note Date of Service Sep 23, 2017. Subjective dialysis last pm, resting comfortably now Objective Vital Signs: Date Time Temp Pulse Resp B/P (MAP) Pulse Ox O2 Delivery O2 Flow Rate FiO2 09/23/17 04:01 36.5 86 27 142/78 (99) 91 Room Air 09/23/17 04:00 91 Room Air 09/23/17 03:01 83 26 138/75 (96) 91 Room Air 09/23/17 02:01 85 26 129/73 (91) 91 Room Air 09/23/17 01:00 85 24 145/75 (98) 91 Room Air 09/23/17 00:01 36.9 85 23 138/69 (92) 91 Room Air 09/22/17 23:59 91 Room Air 09/22/17 23:01 86 28 148/79 (102) 91 Room Air 09/22/17 22:04 36.9 86 143/76 (98) 09/22/17 22:01 86 26 139/76 (97) 93 Room Air 09/22/17 21:30 86 144/78 09/22/17 21:16 83 26 154/82 (106) 94 Room Air 09/22/17 21:15 84 154/82 09/22/17 21:01 81 28 160/88 (112) 93 Room Air 09/22/17 21:00 81 160/88 09/22/17 20:45 79 131/81 09/22/17 20:45 82 25 131/81 (98) 94 Room Air 09/22/17 20:31 73 22 136/80 (98) 95 Room Air 09/22/17 20:30 78 136/80 09/22/17 20:16 79 23 162/89 (113) 96 Room Air 09/22/17 20:15 79 162/89 09/22/17 20:01 36.9 77 21 146/79 (101) 95 Room Air 09/22/17 20:00 77 146/79 09/22/17 20:00 94 Room Air 09/22/17 19:45 77 142/81 09/22/17 19:32 84 28 133/80 (97) Room Air 09/22/17 19:31 87 24 140/77 (98) 95 Room Air 09/22/17 19:30 83 133/80 09/22/17 19:25 36.9 80 124/8 (46) 09/22/17 19:16 81 26 136/79 (98) 95 Room Air 09/22/17 19:01 86 21 152/84 (106) 95 Room Air 09/22/17 18:00 82 20 129/76 (93) 94 Room Air 09/22/17 16:00 96 Room Air 09/22/17 16:00 36.8 75 20 150/81 (104) 99 Room Air 09/22/17 13:43 36.7 80 20 97 09/22/17 12:29 97 Room Air 09/22/17 11:19 36.7 80 20 130/72 (91) 95 09/22/17 09:02 36.6 82 20 130/72 (91) 94 09/22/17 08:00 97 Room Air 09/22/17 07:38 36.7 79 20 105/66 (79) 95 Abdomen: soft Laboratory Results: Results Past 24 Hours Test 09/22/17 07:31 09/22/17 09:59 09/22/17 11:14 09/22/17 11:35 Range/Units Bedside Glucose 191 58 63 70-99 mg/dl Sodium Level 143 136-145 mmol/L Potassium Level 4.4 3.5-5.1 mmol/L Chloride Level 113 98-107 mmol/L Carbon Dioxide Level 13 21-32 mmol/L Anion Gap 16.0 3-11 mmol/L Blood Urea Nitrogen 65 7-18 mg/dl Creatinine 5.03 0.60-1.40 mg/dl Est Creatinine Clear Calc Drug Dose 16.9 ml/min Estimated GFR () 13.4 Estimated GFR (Non- 11.6 BUN/Creatinine Ratio 12.9 10-20 Random Glucose 60 70-99 mg/dl Calcium Level 6.9 8.5-10.1 mg/dl Test 09/22/17 12:08 09/22/17 15:55 09/22/17 16:22 09/22/17 16:24 Range/Units Bedside Glucose 136 54 54 70-99 mg/dl Sodium Level 140 136-145 mmol/L Potassium Level 4.4 3.5-5.1 mmol/L Chloride Level 112 98-107 mmol/L Carbon Dioxide Level 14 21-32 mmol/L Anion Gap 14.0 3-11 mmol/L Blood Urea Nitrogen 69 7-18 mg/dl Creatinine 5.78 0.60-1.40 mg/dl Est Creatinine Clear Calc Drug Dose 14.7 ml/min Estimated GFR () 11.3 Estimated GFR (Non- 9.8 BUN/Creatinine Ratio 11.9 10-20 Random Glucose 56 70-99 mg/dl Calcium Level 6.5 8.5-10.1 mg/dl Hepatitis B Surface Antibody NEG Test 09/22/17 16:57 09/22/17 18:29 09/22/17 22:05 09/23/17 00:19 Range/Units Bedside Glucose 70 117 100 106 70-99 mg/dl Test 09/23/17 05:08 Range/Units White Blood Count 11.39 4.8-10.8 K/uL Red Blood Count 4.57 4.7-6.1 M/uL Hemoglobin 12.7 14.0-18.0 g/dL Hematocrit 37.3 42-52 % Mean Corpuscular Volume 81.6 80-100 fL Mean Corpuscular Hemoglobin 27.8 25-34 pg Mean Corpuscular Hemoglobin Concent 34.0 32-36 g/dl RDW Standard Deviation 44.0 36.4-46.3 fL RDW Coefficient of Variation 14.7 11.5-14.5 % Ionized Calcium 0.89 1.12-1.32 mmol/l Assessment & Plan 09/23/17- No evidence of significant acute cholecystitis cont nonoperative management.
[2017-09-23 06:44] LABS: MEAN PLATELET VOLUME 10.8 fL (7.4-10.4); PLATELET COUNT 77 K/uL (130-400)
[2017-09-23 06:55] LABS: ALBUMIN 2.2 gm/dl (3.4-5.0); CALCIUM 6.8 mg/dl (8.5-10.1); CREATININE 5.7 mg/dl (0.60-1.40); PHOSPHORUS 3.4 mg/dl (2.5-4.9)
[2017-09-23] MEDS: AMPICILLIN/SULBACTAM SOD INJ 3,000 MG in SODIUM CHLORIDE 0.9% 100ML 100 ML IV SCH (07:09)
[2017-09-23 07:35] LABS: POTASSIUM 3.6 mmol/L (3.5-5.1)
--- NOTE | 2017-09-23 07:42 | Critical Care Progress Note ---
Critical Care Progress Note Date of Service Sep 23, 2017. ICU Day ICU Day Number: [address] Marin Subjective No complaints, having a productive cough. Past bedside swallow no significant coughing while eating breakfast Objective General Appearance: no apparent distress Eyes: PERRLA Neck: normal range of motion, no tenderness, trachea midline Respiratory: rhonchi (scattered) ABD: Soft nondistended nontender no organomegaly Upper Extremities: other (missing left upper extremity near shoulder) Neuro: alert, oriented x 3, speech abnormal (mild dysarthria) Assessment & Plan PLAN: Neuro: Left cerebellar CVA * Reviewed neurology recommendations * Continue with aspirin, add Plavix for 3 months Resp: Small right pleural effusion * Follow up with radiograph Mild hypoxic respiratory failure * If the patient has acute cholecystitis C could be third spacing fluid from infection * Pulmonary embolism is also a consideration will obtain lower extremity venous duplexes, IV contrast CT scan contraindicated at this time especially in the setting of acute stroke would not be a candidate for systemic anticoagulation * Given contraindication to systemic anticoagulation filter would be most viable option, this would only preclude lower extremity DVT embolism CV: Syncope * Likely secondary to neurological injury * No evidence of arrhythmia on cardiac monitoring Prolonged QTC * Avoid QT prolonging meds, changed compazine to ativan (low dose) Hypertension * Liberalized blood pressure goals at this time * Anticipate starting antihypertensives and near future Fluids/Renal: Acute kidney injury secondary to rhabdomyolysis * Nephrology adding bicarbonate infusion * To receive dialysis today ID: On Unasyn day 2/? * Blood cultures no growth to date GI/Nutrition: Nausea * This may be difficult can to control secondary to neurological pathology, we will use low dose Ativan given acute kidney injury and need to avoid QT prolonging medications Possible cholecystitis * Management per general surgery Heme: Anemia Thrombocytopenia: * Continue heparin prophylaxis Heparin for DVT prophylaxis * 5000 units every 8 Bilateral venous duplex: pending Endocrine: Accu-Cheks per protocol Data Medications: Current Inpatient Medications Medications (Trade) Dose Ordered Sig/Grady Route Start Time Stop Time Status Last Admin Dose Admin Ioversol (Optiray 320) 100 ml UD PRN IV 09/21/17 19:45 09/25/17 19:44 Acetaminophen (Tylenol Tab) 325 mg Q6H PRN PO 09/21/17 23:45 10/21/17 23:44 Nitroglycerin (Nitrostat Tab) 0.4 mg UD PRN SL 09/21/17 23:45 10/21/17 23:44 Hydromorphone HCl (Dilaudid Inj) 0.5 mg Q3H PRN IV 09/21/17 23:45 10/05/17 23:44 Oxycodone HCl (Roxicodone Immediate Rel Tab) 5 mg Q6H PRN PO 09/21/17 23:45 10/05/17 23:44 Prochlorperazine Edisylate 5 mg/ Syringe 5 ml @ 5 mls/min Q6H PRN IV 09/21/17 23:45 10/21/17 23:44 Aspirin (Ecotrin Tab) 81 mg QAM PO 09/22/17 09:00 10/22/17 08:59 09/22/17 12:02 81 MG Miscellaneous Information (Pharmacist Discharge Med Rec Consult) 1 ea UD PRN N/A 09/21/17 23:45 10/21/17 23:44 Ampicillin Sodium/ Sulbactam Sodium (Consult) 1 ea UD PRN N/A 09/22/17 09:00 10/22/17 08:59 Ampicillin Sodium/ Sulbactam Sodium 3000 mg/Sodium Chloride 108 ml @ 216 mls/hr Q12H IV 09/22/17 07:00 09/29/17 06:59 09/23/17 07:09 216 MLS/HR Atorvastatin Calcium (Lipitor Tab) 40 mg QAM PO 09/22/17 09:00 10/22/17 08:59 09/22/17 12:02 40 MG Sodium Bicarbonate 150 meq/Dextrose 1,150 ml @ 200 mls/hr Q5H45M IV 09/22/17 18:45 10/22/17 18:44 09/23/17 07:10 200 MLS/HR Heparin Sodium (Porcine) (No Heparin In Dialysis) 1 ea TODAY@0600 N/A 09/23/17 06:00 09/23/17 23:59 Vital Signs: Date Time Temp Pulse Resp B/P (MAP) Pulse Ox O2 Delivery O2 Flow Rate FiO2 09/23/17 07:01 87 25 170/84 (112) 91 09/23/17 06:01 89 26 146/79 (101) 92 09/23/17 05:01 90 29 140/81 (100) 91 09/23/17 04:01 36.5 86 27 142/78 (99) 91 Room Air 09/23/17 04:00 91 Room Air 09/23/17 03:01 83 26 138/75 (96) 91 Room Air 09/23/17 02:01 85 26 129/73 (91) 91 Room Air 09/23/17 01:00 85 24 145/75 (98) 91 Room Air 09/23/17 00:01 36.9 85 23 138/69 (92) 91 Room Air 09/22/17 23:59 91 Room Air 09/22/17 23:01 86 28 148/79 (102) 91 Room Air 09/22/17 22:04 36.9 86 143/76 (98) 09/22/17 22:01 86 26 139/76 (97) 93 Room Air 09/22/17 21:30 86 144/78 09/22/17 21:16 83 26 154/82 (106) 94 Room Air 09/22/17 21:15 84 154/82 09/22/17 21:01 81 28 160/88 (112) 93 Room Air 09/22/17 21:00 81 160/88 09/22/17 20:45 79 131/81 18 20:45 82 25 131/81 (98) 94 Room Air 09/22/17 20:31 73 22 136/80 (98) 95 Room Air 09/22/17 20:30 78 136/80 09/22/17 20:16 79 23 162/89 (113) 96 Room Air 09/22/17 20:15 79 162/89 09/22/17 20:01 36.9 77 21 146/79 (101) 95 Room Air 09/22/17 20:00 77 146/79 18 20:00 94 Room Air 09/22/17 19:45 77 142/81 18 19:32 84 28 133/80 (97) Room Air 18 19:31 87 24 140/77 (98) 95 Room Air 18 19:30 83 133/80 18 19:25 36.9 80 124/8 (46) 09/22/17 19:16 81 26 136/79 (98) 95 Room Air 09/22/17 19:01 86 21 152/84 (106) 95 Room Air 09/22/17 18:00 82 20 129/76 (93) 94 Room Air 09/22/17 16:00 96 Room Air 09/22/17 16:00 36.8 75 20 150/81 (104) 99 Room Air 09/22/17 13:43 36.7 80 20 97 09/22/17 12:29 97 Room Air 09/22/17 11:19 36.7 80 20 130/72 (91) 95 09/22/17 09:02 36.6 82 20 130/72 (91) 94 09/22/17 08:00 97 Room Air 09/22/17 07:38 36.7 79 20 105/66 (79) 95 Laboratory Results: Last 24 Hours Test 09/22/17 07:31 09/22/17 09:59 09/22/17 11:14 09/22/17 11:35 Bedside Glucose 191 mg/dl 58 mg/dl 63 mg/dl Sodium Level 143 mmol/L Potassium Level 4.4 mmol/L Chloride Level 113 mmol/L Carbon Dioxide Level 13 mmol/L Anion Gap 16.0 mmol/L Blood Urea Nitrogen 65 mg/dl Creatinine 5.03 mg/dl Est Creatinine Clear Calc Drug Dose 16.9 ml/min Estimated GFR () 13.4 Estimated GFR (Non- 11.6 BUN/Creatinine Ratio 12.9 Random Glucose 60 mg/dl Calcium Level 6.9 mg/dl Test 09/22/17 12:08 09/22/17 15:55 09/22/17 16:22 09/22/17 16:24 Bedside Glucose 136 mg/dl 54 mg/dl 54 mg/dl Sodium Level 140 mmol/L Potassium Level 4.4 mmol/L Chloride Level 112 mmol/L Carbon Dioxide Level 14 mmol/L Anion Gap 14.0 mmol/L Blood Urea Nitrogen 69 mg/dl Creatinine 5.78 mg/dl Est Creatinine Clear Calc Drug Dose 14.7 ml/min Estimated GFR () 11.3 Estimated GFR (Non- 9.8 BUN/Creatinine Ratio 11.9 Random Glucose 56 mg/dl Calcium Level 6.5 mg/dl Hepatitis B Surface Antibody NEG Test 09/22/17 16:57 09/22/17 18:29 09/22/17 22:05 09/23/17 00:19 Bedside Glucose 70 mg/dl 117 mg/dl 100 mg/dl 106 mg/dl Test 09/23/17 05:08 White Blood Count 11.39 K/uL Red Blood Count 4.57 M/uL Hemoglobin 12.7 g/dL Hematocrit 37.3 % Mean Corpuscular Volume 81.6 fL Mean Corpuscular Hemoglobin 27.8 pg Mean Corpuscular Hemoglobin Concent 34.0 g/dl RDW Standard Deviation 44.0 fL RDW Coefficient of Variation 14.7 % Platelet Count 77 K/uL Mean Platelet Volume 10.8 fL Platelet Estimate DECREASED Sodium Level 137 mmol/L Chloride Level 102 mmol/L Carbon Dioxide Level 26 mmol/L Anion Gap 9.0 mmol/L Blood Urea Nitrogen 52 mg/dl Creatinine 5.70 mg/dl Est Creatinine Clear Calc Drug Dose 16.8 ml/min Estimated GFR () 11.5 Estimated GFR (Non- 9.9 BUN/Creatinine Ratio 9.1 Random Glucose 159 mg/dl Calcium Level 6.8 mg/dl Ionized Calcium 0.89 mmol/l Phosphorus Level 3.4 mg/dl Magnesium Level 2.0 mg/dl Total Bilirubin 0.5 mg/dl Aspartate Amino Transf (AST/SGOT) 1103 U/L Alanine Aminotransferase (ALT/SGPT) 210 U/L Alkaline Phosphatase 60 U/L Total Creatine Kinase 59590 U/L Total Protein 5.0 gm/dl Albumin 2.2 gm/dl Globulin 2.8 gm/dl Albumin/Globulin Ratio 0.8
[2017-09-23 08:08] LABS: HEPATITIS A IGM TC 51813E NON-REACTIVE (NON-REACTIVE); HEPATITIS B CORE IGM TC51854R NON-REACTIVE (NON-REACTIVE)
[2017-09-23] MEDS: ATORVASTATIN 40 MG TAB PO SCH (08:26)
[2017-09-23] MEDS: ASPIRIN 81 MG ECTAB PO SCH (08:26)
--- NOTE | 2017-09-23 09:26 | Nephrology Progress Note ---
Nephrology Progress Note Date of Service: Sep 23, 2017. Subjective 62 yo male with chronic left sided hemiparesis with rhabdo/carline, acute cholecystitis on aggressive fluid resuscitation and started on dialysis yesterday and tolerated it well. for dialysis again today. not complaining of sob but with exertion, starts to breathe heavy. family at bedside. Objective Date Time Temp Pulse Resp B/P (MAP) Pulse Ox O2 Delivery O2 Flow Rate FiO2 09/23/17 08:00 86 Room Air 09/23/17 08:00 37.5 93 24 91 Nasal Cannula 2.0 09/23/17 07:01 87 25 170/84 (112) 91 09/23/17 06:01 89 26 146/79 (101) 92 09/23/17 05:01 90 29 140/81 (100) 91 09/23/17 04:01 36.5 86 27 142/78 (99) 91 Room Air 09/23/17 04:00 91 Room Air 09/23/17 03:01 83 26 138/75 (96) 91 Room Air 09/23/17 02:01 85 26 129/73 (91) 91 Room Air 09/23/17 01:00 85 24 145/75 (98) 91 Room Air 09/23/17 00:01 36.9 85 23 138/69 (92) 91 Room Air 09/22/17 23:59 91 Room Air 09/22/17 23:01 86 28 148/79 (102) 91 Room Air 09/22/17 22:04 36.9 86 143/76 (98) 09/22/17 22:01 86 26 139/76 (97) 93 Room Air 09/22/17 21:30 86 144/78 09/22/17 21:16 83 26 154/82 (106) 94 Room Air 09/22/17 21:15 84 154/82 09/22/17 21:01 81 28 160/88 (112) 93 Room Air 09/22/17 21:00 81 160/88 09/22/17 20:45 79 131/81 09/22/17 20:45 82 25 131/81 (98) 94 Room Air 09/22/17 20:31 73 22 136/80 (98) 95 Room Air 09/22/17 20:30 78 136/80 09/22/17 20:16 79 23 162/89 (113) 96 Room Air 09/22/17 20:15 79 162/89 09/22/17 20:01 36.9 77 21 146/79 (101) 95 Room Air 09/22/17 20:00 77 146/79 09/22/17 20:00 94 Room Air 09/22/17 19:45 77 142/81 09/22/17 19:32 84 28 133/80 (97) Room Air 09/22/17 19:31 87 24 140/77 (98) 95 Room Air 09/22/17 19:30 83 133/80 09/22/17 19:25 36.9 80 124/8 (46) 09/22/17 19:16 81 26 136/79 (98) 95 Room Air 09/22/17 19:01 86 21 152/84 (106) 95 Room Air 09/22/17 18:00 82 20 129/76 (93) 94 Room Air 09/22/17 16:00 96 Room Air 09/22/17 16:00 36.8 75 20 150/81 (104) 99 Room Air 09/22/17 13:43 36.7 80 20 97 09/22/17 12:29 97 Room Air 09/22/17 11:19 36.7 80 20 130/72 (91) 95 Physical Exam: General-aaox3 Eyes-no scleral icterus ENT-mmm Neck-supple Lungs-decreased at bases Heart-rrr Abdomen-bs+ nontender Extremities-no c/c/e Neuro-left sided hemiparesis Current Inpatient Medications Medications (Trade) Dose Ordered Sig/Grady Route Start Time Stop Time Status Last Admin Dose Admin Ioversol (Optiray 320) 100 ml UD PRN IV 09/21/17 19:45 09/25/17 19:44 Acetaminophen (Tylenol Tab) 325 mg Q6H PRN PO 09/21/17 23:45 10/21/17 23:44 Nitroglycerin (Nitrostat Tab) 0.4 mg UD PRN SL 09/21/17 23:45 10/21/17 23:44 Hydromorphone HCl (Dilaudid Inj) 0.5 mg Q3H PRN IV 09/21/17 23:45 10/05/17 23:44 Oxycodone HCl (Roxicodone Immediate Rel Tab) 5 mg Q6H PRN PO 09/21/17 23:45 10/05/17 23:44 Prochlorperazine Edisylate 5 mg/ Syringe 5 ml @ 5 mls/min Q6H PRN IV 09/21/17 23:45 10/21/17 23:44 Aspirin (Ecotrin Tab) 81 mg QAM PO 09/22/17 09:00 10/22/17 08:59 09/23/17 08:26 81 MG Miscellaneous Information (Pharmacist Discharge Med Rec Consult) 1 ea UD PRN N/A 09/21/17 23:45 10/21/17 23:44 Ampicillin Sodium/ Sulbactam Sodium (Consult) 1 ea UD PRN N/A 09/22/17 09:00 10/22/17 08:59 Ampicillin Sodium/ Sulbactam Sodium 3000 mg/Sodium Chloride 108 ml @ 216 mls/hr Q12H IV 09/22/17 07:00 09/29/17 06:59 09/23/17 07:09 216 MLS/HR Atorvastatin Calcium (Lipitor Tab) 40 mg QAM PO 09/22/17 09:00 10/22/17 08:59 09/23/17 08:26 40 MG Sodium Bicarbonate 150 meq/Dextrose 1,150 ml @ 200 mls/hr Q5H45M IV 09/22/17 18:45 10/22/17 18:44 09/23/17 07:10 200 MLS/HR Heparin Sodium (Porcine) (No Heparin In Dialysis) 1 ea TODAY@0600 N/A 09/23/17 06:00 09/23/17 23:59 Last 24 Hours Test 09/22/17 09:59 09/22/17 11:14 09/22/17 11:35 09/22/17 12:08 Sodium Level 143 mmol/L Potassium Level 4.4 mmol/L Chloride Level 113 mmol/L Carbon Dioxide Level 13 mmol/L Anion Gap 16.0 mmol/L Blood Urea Nitrogen 65 mg/dl Creatinine 5.03 mg/dl Est Creatinine Clear Calc Drug Dose 16.9 ml/min Estimated GFR () 13.4 Estimated GFR (Non- 11.6 BUN/Creatinine Ratio 12.9 Random Glucose 60 mg/dl Calcium Level 6.9 mg/dl Bedside Glucose 58 mg/dl 63 mg/dl 136 mg/dl Test 09/22/17 15:55 09/22/17 16:22 09/22/17 16:24 09/22/17 16:57 Sodium Level 140 mmol/L Potassium Level 4.4 mmol/L Chloride Level 112 mmol/L Carbon Dioxide Level 14 mmol/L Anion Gap 14.0 mmol/L Blood Urea Nitrogen 69 mg/dl Creatinine 5.78 mg/dl Est Creatinine Clear Calc Drug Dose 14.7 ml/min Estimated GFR () 11.3 Estimated GFR (Non- 9.8 BUN/Creatinine Ratio 11.9 Random Glucose 56 mg/dl Calcium Level 6.5 mg/dl Hepatitis B Surface Antibody NEG Bedside Glucose 54 mg/dl 54 mg/dl 70 mg/dl Test 09/22/17 18:29 09/22/17 22:05 09/23/17 00:19 09/23/17 05:08 Bedside Glucose 117 mg/dl 100 mg/dl 106 mg/dl White Blood Count 11.39 K/uL Red Blood Count 4.57 M/uL Hemoglobin 12.7 g/dL Hematocrit 37.3 % Mean Corpuscular Volume 81.6 fL Mean Corpuscular Hemoglobin 27.8 pg Mean Corpuscular Hemoglobin Concent 34.0 g/dl RDW Standard Deviation 44.0 fL RDW Coefficient of Variation 14.7 % Platelet Count 77 K/uL Mean Platelet Volume 10.8 fL Platelet Estimate DECREASED Sodium Level 137 mmol/L Potassium Level 3.6 mmol/L Chloride Level 102 mmol/L Carbon Dioxide Level 26 mmol/L Anion Gap 9.0 mmol/L Blood Urea Nitrogen 52 mg/dl Creatinine 5.70 mg/dl Est Creatinine Clear Calc Drug Dose 16.8 ml/min Estimated GFR () 11.5 Estimated GFR (Non- 9.9 BUN/Creatinine Ratio 9.1 Random Glucose 159 mg/dl Calcium Level 6.8 mg/dl Ionized Calcium 0.89 mmol/l Phosphorus Level 3.4 mg/dl Magnesium Level 2.0 mg/dl Total Bilirubin 0.5 mg/dl Aspartate Amino Transf (AST/SGOT) 1103 U/L Alanine Aminotransferase (ALT/SGPT) 210 U/L Alkaline Phosphatase 60 U/L Total Creatine Kinase 45800 U/L Total Protein 5.0 gm/dl Albumin 2.2 gm/dl Globulin 2.8 gm/dl Albumin/Globulin Ratio 0.8 Date/Time Source Procedure Growth Status 09/23/17 00:00 Stool C.difficile Toxin B Gene (PCR) Pending Received Assessment & Plan [id number] rhabdo and atn-for dialysis again today. 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 +5 liters with rales at bases although bp did drop while critical care was placing patient in tredelenberg during line placement. for now , continue aggressive fluids while monitoring for signs of volume overload closely.
--- NOTE | 2017-09-23 10:04 | DIAGNOSTIC IMAGING REPORT ---
CHEST ONE VIEW PORTABLE CLINICAL HISTORY: Hypoxia. COMPARISON STUDY: Chest radiograph September 22, 2017 4:23 PM. FINDINGS: A right internal jugular introducer is in place. There is no pneumothorax. Positioning on this exam was difficult. Cardiomediastinal silhouette is stable. There has been interval development of extensive left mid lung airspace opacity. Small bilateral pleural effusions are noted. There is pulmonary vascular congestion with suspected pulmonary edema. IMPRESSION: 1. Interval development of left lung airspace opacity with right basilar opacity. The findings could reflect pulmonary edema or pneumonia. 2. Small bilateral pleural effusions. Electronically signed by: Bolivar Owusu M.D. 09/23/2017 10:03 AM Dictated Date/Time: 09/23/2017 10:01 AM
[2017-09-23] MEDS ORDERED: CALCIUM GLUCONATE 10% 2,000 MG in SODIUM CHLORIDE 0.9% 50ML 50 ML IV ONE (11:45)
--- NOTE | 2017-09-23 12:42 | DIAGNOSTIC IMAGING REPORT ---
BILATERAL LOWER EXTREMITY VENOUS DOPPLER CLINICAL HISTORY: Approximately. Recent stroke. COMPARISON STUDY: No previous studies for comparison. TECHNIQUE: Sonography of the deep venous system of the bilateral lower extremities was performed. Compression and augmentation were evaluated. FINDINGS: The bilateral common femoral, superficial femoral and popliteal veins were compressible. Augmentation was normal. Flow was shown within the deep calf vessels. IMPRESSION: No evidence of deep venous thrombus within the bilateral lower extremities. Electronically signed by: Bolivar Owusu M.D. 09/23/2017 12:40 PM Dictated Date/Time: 09/23/2017 12:40 PM
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
[2017-09-23] MEDS ORDERED: CLOPIDOGREL BISULFATE 75 MG TAB PO ONE (15:15)
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
[2017-09-24] VITALS (20 sets, daily range): BP systolic 143–183; BP diastolic 83–93; PULSE 76–108; TEMP 36.6–37.4; O2SAT 91–95
--- NOTE | 2017-09-24 05:41 | Surgery Progress Note ---
Surgery Progress Note Date of Service Sep 24, 2017. Subjective afeb, does not c/o abd pain or chest pain rested well throughout night Objective Vital Signs: Date Time Temp Pulse Resp B/P (MAP) Pulse Ox O2 Delivery O2 Flow Rate FiO2 09/24/17 04:01 36.6 94 31 153/87 (109) 94 Nasal Cannula 2.0 09/24/17 04:00 95 Room Air 09/24/17 03:01 97 26 159/92 (114) 95 Nasal Cannula 2.0 09/24/17 02:01 99 29 144/88 (106) 95 Nasal Cannula 2.0 09/24/17 01:01 96 27 151/90 (110) 95 Nasal Cannula 2.0 09/24/17 00:01 36.8 97 28 154/83 (106) 94 Nasal Cannula 2.0 09/23/17 23:59 95 Room Air 09/23/17 23:01 98 32 160/87 (111) 92 Nasal Cannula 2.0 09/23/17 22:40 94 20 94 Nasal Cannula 2.0 09/23/17 22:01 89 30 152/92 (112) 92 Nasal Cannula 2.0 09/23/17 21:01 85 33 165/99 (121) 95 Nasal Cannula 2.0 09/23/17 20:57 36.9 90 156/91 (112) 09/23/17 20:23 92 28 156/91 (112) 95 Nasal Cannula 2.0 09/23/17 20:16 82 26 165/85 (111) 96 Nasal Cannula 2.0 09/23/17 20:01 36.9 74 22 157/90 (112) 97 Nasal Cannula 2.0 09/23/17 20:00 84 157/90 09/23/17 20:00 94 Room Air 09/23/17 19:46 81 25 156/86 (109) 97 Nasal Cannula 2.0 09/23/17 19:45 82 156/86 09/23/17 19:31 85 23 154/84 (107) 96 Nasal Cannula 2.0 09/23/17 19:30 83 154/84 09/23/17 19:16 83 27 157/80 (105) 96 Nasal Cannula 2.0 09/23/17 19:15 87 157/80 09/23/17 19:01 85 24 153/82 (105) 95 Nasal Cannula 2.0 2/3/18 19:00 85 153/82 09/23/17 18:45 88 152/77 09/23/17 18:30 82 146/76 09/23/17 18:15 88 148/79 09/23/17 18:00 89 151/84 09/23/17 18:00 87 24 148/79 (102) 95 Nasal Cannula 2.0 09/23/17 17:45 91 152/85 09/23/17 17:31 37.4 80 147/79 (101) 09/23/17 16:00 93 Room Air 09/23/17 16:00 37.4 86 20 149/84 (105) 93 Nasal Cannula 2.0 09/23/17 14:00 90 24 147/79 (101) 92 Nasal Cannula 2.0 09/23/17 12:00 37.1 98 30 149/88 (108) 90 Nasal Cannula 2.0 09/23/17 12:00 91 Nasal Cannula 09/23/17 10:00 89 25 146/76 (99) 92 Nasal Cannula 2.0 09/23/17 08:00 86 Room Air 09/23/17 08:00 37.5 93 24 167/86 (113) 91 Nasal Cannula 2.0 09/23/17 07:01 87 25 170/84 (112) 91 09/23/17 06:01 89 26 146/79 (101) 92 General Appearance: no apparent distress Respiratory/Chest: no respiratory distress Abdomen: non tender, soft Laboratory Results: Results Past 24 Hours Test 09/23/17 11:21 09/23/17 16:18 09/24/17 00:14 09/24/17 05:10 Range/Units Bedside Glucose 124 119 93 70-99 mg/dl Assessment & Plan 09/24/17- Pt has cholelithiasis and probable chronic inflammatory changes in his gb- I don't think there is a need for surgical intervention - Showing no evidence of necrotizing cholecystitis 09/23/17- No evidence of significant acute cholecystitis cont nonoperative management. 09/23/17- No evidence of significant acute cholecystitis cont nonoperative management.
[2017-09-24 05:51] LABS: HEMATOCRIT 36.7 % (42-52); HEMOGLOBIN 12.9 g/dL (14.0-18.0); MEAN CELL VOLUME 82.7 fL (80-100); MEAN CORPUSCULAR HEMOGLOBIN 29.1 pg (25-34); MEAN CORPUSCULAR HGB CONC 35.1 g/dl (32-36); RED CELL DISTRIBUTION WIDTH CV 14.6 % (11.5-14.5); RED CELL DISTRIBUTION WIDTH SD 44.2 fL (36.4-46.3); WHITE BLOOD COUNT 7.33 K/uL (4.8-10.8)
[2017-09-24 06:02] LABS: MEAN PLATELET VOLUME 11.7 fL (7.4-10.4); PLATELET COUNT 63 K/uL (130-400)
[2017-09-24 06:42] LABS: ALBUMIN 2.1 gm/dl (3.4-5.0); CALCIUM 7.1 mg/dl (8.5-10.1); CREATININE 6.64 mg/dl (0.60-1.40); PHOSPHORUS 3.6 mg/dl (2.5-4.9); TOTAL PROTEIN 5.2 gm/dl (6.4-8.2)
[2017-09-24] MEDS: ALBUT/IPRATROP 3MG/0.5MG NEB 3 ML VIAL INH SCH ×4 (07:20→19:35)
--- NOTE | 2017-09-24 08:01 | DIAGNOSTIC IMAGING REPORT ---
CHEST ONE VIEW PORTABLE CLINICAL HISTORY: 62 years-old Male presenting with Increased o2 demand. TECHNIQUE: Portable upright AP view of the chest was obtained. COMPARISON: 09/23/2017. FINDINGS: The patient is OSMANI rotated. Single lumen right internal jugular large bore central venous catheter terminates in the mid SVC. Atherosclerosis of the aortic arch. Cardiac silhouette normal in size. Persistent central and basilar predominant hazy opacities greater on the left. Bilateral small pleural effusions suspected. No large pneumothorax. Levocurvature of the thoracic spine. Multiple external leads overlie the thorax degrade image quality. Upper abdomen normal. IMPRESSION: 1. No significant change in central and basilar predominant hazy opacities greater on the left. This could suggest pulmonary edema, although infection is difficult to exclude. 2. Small pleural effusions. Electronically signed by: Clarke Mike M.D. 09/24/2017 7:59 AM Dictated Date/Time: 09/24/2017 7:58 AM
[2017-09-24] MEDS: ATORVASTATIN 40 MG TAB PO SCH (08:03)
[2017-09-24] MEDS: ASPIRIN 81 MG ECTAB PO SCH (08:03)
[2017-09-24] MEDS ORDERED: CLOPIDOGREL BISULFATE 75 MG TAB PO SCH (09:00)
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
--- NOTE | 2017-09-24 12:12 | PROGRESS NOTE ---
DATE: 09/24/2017 SUBJECTIVE: Yash is currently lethargic and I really did not bother awaking him. Dr. Marin from the ICU staff had a long discussion with the patient's family earlier today and it appears that he really does not want any heroic measures to be taken in the event that he would have in the rest and certainly does not want intubation or treatment of cardiac arrhythmias. 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 Neurologically, according to what I can glean from the family, he is almost back to his baseline. He has a little more tremulousness and undoubtedly, this correlates with his level of uremia and probably would be something that would diminish over time if his renal function could be normalized or reset to its old baseline. He has not had any medical care for 2 years. We really do not know what his baseline renal function has been over that period of time in order to really have a good hand about what it was before he came to [facility]. That having been said, neurology really does not have anything more to offer other than recommending that aspirin and Plavix be continued for a period of 3 months, which is pretty standard after a stroke and then one or the other of these agents be continued as he was on neither when he presented. He needs to pickup a primary care physician at some point, but I am not sure if the family is going to go with this. Follow up of the mitral valve ballooning is also something that I do not think the family is going to be interested in. So, at this point, we really found no clear-cut embolic source (although I am suspicious about the mitral valve)and the treatment would not be altered based upon findings so far and I would simply continue the aspirin and Plavix. Neurology is going to sign off the case at this point, but would be happy to reassess him in the event of other issues that might emerge, particularly if he would begin to develop seizure activity during his late stages of uremia in the event that he would like not to continue to have dialysis. NIMO
--- NOTE | 2017-09-24 14:38 | Nephrology Progress Note ---
Nephrology Progress Note Date of Service: Sep 24, 2017. Subjective 62 yo male with chronic left sided hemiparesis with rhabdo/carline, acute cholecystitis. had temporary line placed. had dialysis x 2 sessions. pt spoke to his family and has decided no more dialysis. would like to go home on hospice/palliative care. in room and agrees and supports his decision. Objective Date Time Temp Pulse Resp B/P (MAP) Pulse Ox O2 Delivery O2 Flow Rate FiO2 09/24/17 14:00 99 18 160/87 (111) 94 Nasal Cannula 2.0 09/24/17 12:00 37.4 105 23 145/86 (105) 91 Nasal Cannula 2.0 09/24/17 12:00 91 Nasal Cannula 09/24/17 11:30 100 20 95 Nasal Cannula 2.0 09/24/17 10:00 103 22 143/88 (106) 91 Nasal Cannula 2.0 09/24/17 08:00 93 Nasal Cannula 09/24/17 08:00 36.6 108 20 152/89 (110) 91 Nasal Cannula 2.0 09/24/17 07:20 76 20 92 Nasal Cannula 2.0 09/24/17 06:17 90 35 145/85 (105) Nasal Cannula 2.0 09/24/17 06:01 97 28 183/93 (123) 91 Nasal Cannula 2.0 09/24/17 05:01 92 28 148/88 (108) 95 Nasal Cannula 2.0 09/24/17 04:01 36.6 94 31 153/87 (109) 94 Nasal Cannula 2.0 09/24/17 04:00 95 Room Air 09/24/17 03:01 97 26 159/92 (114) 95 Nasal Cannula 2.0 09/24/17 02:01 99 29 144/88 (106) 95 Nasal Cannula 2.0 09/24/17 01:01 96 27 151/90 (110) 95 Nasal Cannula 2.0 09/24/17 00:01 36.8 97 28 154/83 (106) 94 Nasal Cannula 2.0 09/23/17 23:59 95 Room Air 09/23/17 23:01 98 32 160/87 (111) 92 Nasal Cannula 2.0 09/23/17 22:40 94 20 94 Nasal Cannula 2.0 09/23/17 22:01 89 30 152/92 (112) 92 Nasal Cannula 2.0 09/23/17 21:01 85 33 165/99 (121) 95 Nasal Cannula 2.0 09/23/17 20:57 36.9 90 156/91 (112) 09/23/17 20:23 92 28 156/91 (112) 95 Nasal Cannula 2.0 09/23/17 20:16 82 26 165/85 (111) 96 Nasal Cannula 2.0 09/23/17 20:01 36.9 74 22 157/90 (112) 97 Nasal Cannula 2.0 09/23/17 20:00 84 157/90 09/23/17 20:00 94 Room Air 09/23/17 19:46 81 25 156/86 (109) 97 Nasal Cannula 2.0 09/23/17 19:45 82 156/86 09/23/17 19:31 85 23 154/84 (107) 96 Nasal Cannula 2.0 09/23/17 19:30 83 154/84 09/23/17 19:16 83 27 157/80 (105) 96 Nasal Cannula 2.0 09/23/17 19:15 87 157/80 09/23/17 19:01 85 24 153/82 (105) 95 Nasal Cannula 2.0 09/23/17 19:00 85 153/82 09/23/17 18:45 88 152/77 09/23/17 18:30 82 146/76 09/23/17 18:15 88 148/79 09/23/17 18:00 89 151/84 09/23/17 18:00 87 24 148/79 (102) 95 Nasal Cannula 2.0 09/23/17 17:45 91 152/85 09/23/17 17:31 37.4 80 147/79 (101) 09/23/17 16:00 93 Room Air 09/23/17 16:00 37.4 86 20 149/84 (105) 93 Nasal Cannula 2.0 Physical Exam: General-aaox3 Eyes-no scleral icterus ENT-mmm Neck-supple Lungs-decreased at bases Heart-tachy Abdomen-bs+ nontender Extremities-no c/c/e Neuro-left sided hemiparesis Current Inpatient Medications Medications (Trade) Dose Ordered Sig/Grady Route Start Time Stop Time Status Last Admin Dose Admin Ioversol (Optiray 320) 100 ml UD PRN IV 09/21/17 19:45 09/25/17 19:44 Acetaminophen (Tylenol Tab) 325 mg Q6H PRN PO 09/21/17 23:45 10/21/17 23:44 Nitroglycerin (Nitrostat Tab) 0.4 mg UD PRN SL 09/21/17 23:45 10/21/17 23:44 Hydromorphone HCl (Dilaudid Inj) 0.5 mg Q3H PRN IV 09/21/17 23:45 10/05/17 23:44 Oxycodone HCl (Roxicodone Immediate Rel Tab) 5 mg Q6H PRN PO 09/21/17 23:45 10/05/17 23:44 Prochlorperazine Edisylate 5 mg/ Syringe 5 ml @ 5 mls/min Q6H PRN IV 09/21/17 23:45 10/21/17 23:44 Aspirin (Ecotrin Tab) 81 mg QAM PO 09/22/17 09:00 10/22/17 08:59 09/24/17 08:03 81 MG Miscellaneous Information (Pharmacist Discharge Med Rec Consult) 1 ea UD PRN N/A 09/21/17 23:45 10/21/17 23:44 Ampicillin Sodium/ Sulbactam Sodium (Consult) 1 ea UD PRN N/A 09/22/17 09:00 10/22/17 08:59 Atorvastatin Calcium (Lipitor Tab) 40 mg QAM PO 09/22/17 09:00 10/22/17 08:59 09/24/17 08:03 40 MG Ampicillin Sodium/ Sulbactam Sodium 3000 mg/Sodium Chloride 108 ml @ 216 mls/hr Q24H IV 09/24/17 16:00 09/29/17 06:59 Clopidogrel Bisulfate (plAVix TAB) 75 mg QAM PO 09/24/17 09:00 10/24/17 08:59 09/24/17 08:03 75 MG Albuterol/ Ipratropium (Duoneb) 3 ml QIDR INH 09/24/17 08:00 10/24/17 07:59 09/24/17 11:30 3 ML Last 24 Hours Test 09/23/17 16:18 09/24/17 00:14 09/24/17 05:10 09/24/17 11:42 Bedside Glucose 119 mg/dl 93 mg/dl 199 mg/dl White Blood Count 7.33 K/uL Red Blood Count 4.44 M/uL Hemoglobin 12.9 g/dL Hematocrit 36.7 % Mean Corpuscular Volume 82.7 fL Mean Corpuscular Hemoglobin 29.1 pg Mean Corpuscular Hemoglobin Concent 35.1 g/dl RDW Standard Deviation 44.2 fL RDW Coefficient of Variation 14.6 % Platelet Count 63 K/uL Mean Platelet Volume 11.7 fL Sodium Level 137 mmol/L Potassium Level 4.0 mmol/L Chloride Level 102 mmol/L Carbon Dioxide Level 27 mmol/L Anion Gap 8.0 mmol/L Blood Urea Nitrogen 42 mg/dl Creatinine 6.64 mg/dl Est Creatinine Clear Calc Drug Dose 14.3 ml/min Estimated GFR () 9.6 Estimated GFR (Non- 8.3 BUN/Creatinine Ratio 6.4 Random Glucose 90 mg/dl Calcium Level 7.1 mg/dl Phosphorus Level 3.6 mg/dl Magnesium Level 1.9 mg/dl Total Bilirubin 0.6 mg/dl Aspartate Amino Transf (AST/SGOT) 868 U/L Alanine Aminotransferase (ALT/SGPT) 197 U/L Alkaline Phosphatase 59 U/L Total Creatine Kinase 47459 U/L Total Protein 5.2 gm/dl Albumin 2.1 gm/dl Globulin 3.1 gm/dl Albumin/Globulin Ratio 0.7 Assessment & Plan [id number] rhabdo and atn-explained to the patient that his kidney function may still recover and that dialysis is only temporary. pt understands but does not want any further treatments. pt has said goodbye to his family and has good understanding of his decision. pt may eventually fill up with uremic toxins, become confused and sleepy and then eventually pass away. would recommend removal of temporary dialysis catheter. kidney function may still recover over the next several days but statistically without dialysis, likely to pass away.
[2017-09-24] MEDS ORDERED: AMPICILLIN/SULBACTAM SOD INJ 3,000 MG in SODIUM CHLORIDE 0.9% 100ML 100 ML IV SCH (16:00)
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
[2017-09-25] VITALS (9 sets, daily range): BP systolic 144–149; BP diastolic 84–89; PULSE 95–103; TEMP 36.8; O2SAT 91–95
[2017-09-25 04:23] LABS: HEMATOCRIT 35.5 % (42-52); HEMOGLOBIN 12.1 g/dL (14.0-18.0); MEAN CELL VOLUME 82.6 fL (80-100); MEAN CORPUSCULAR HEMOGLOBIN 28.1 pg (25-34); MEAN CORPUSCULAR HGB CONC 34.1 g/dl (32-36); RED CELL DISTRIBUTION WIDTH CV 14.3 % (11.5-14.5); RED CELL DISTRIBUTION WIDTH SD 43.2 fL (36.4-46.3); WHITE BLOOD COUNT 6.05 K/uL (4.8-10.8)
[2017-09-25 04:25] LABS: MEAN PLATELET VOLUME 10.5 fL (7.4-10.4); PLATELET COUNT 66 K/uL (130-400)
[2017-09-25 04:43] LABS: PTT PATIENT 34.6 SECONDS (21.0-31.0)
[2017-09-25 04:55] LABS: CALCIUM 6.6 mg/dl (8.5-10.1); CREATININE 9.58 mg/dl (0.60-1.40); POTASSIUM 4.2 mmol/L (3.5-5.1); TOTAL PROTEIN 5.1 gm/dl (6.4-8.2)
[2017-09-25 04:57] LABS: BASO % 0.2 %; BASO ABS # 0.01 K/uL (0-0.2); EOS % 0.2 %; EOS ABS # 0.01 K/uL (0-0.5); IG# 0.02 K/uL (0.00-0.02); LYMPH % 10.2 %; LYMPH ABS # 0.62 K/uL (1.2-3.4); MONO % 17.2 %; MONO ABS # 1.04 K/uL (0.11-0.59); NEUT % 71.9 %; NEUT ABS # 4.35 K/uL (1.4-6.5)
[2017-09-25] MEDS ORDERED: DEXTROSE 5% 1000ML 1,000 ML IV SCH (07:00)
[2017-09-25] MEDS ORDERED: PANTOprazole INJ 40 MG in DEXTROSE 5% 100ML IV SCH (07:15)
[2017-09-25] MEDS ORDERED: PANTOprazole INJ 80 MG in DEXTROSE 5% 100ML IV ONE (07:15)
[2017-09-25] MEDS: ALBUT/IPRATROP 3MG/0.5MG NEB 3 ML VIAL INH SCH ×4 (07:16→19:58)
--- NOTE | 2017-09-25 07:25 | Progress Note ---
Internal Med Progress Note Date of Service: Sep 25, 2017. Provider Documentation: Made aware by RN of patient epistaxis, blood in the mouth, bloody Shea cath drainage, black clot like stools. Patient denies abdominal pain. AP UGIB ? Swallowed blood Hold antiplatelets for now serial HH IV PPI for possible UGIB Defer discussion regarding GI consult between patient and AM provider given inclination to pursue palliative goals of care as per progress notes from yesterday. Vital Signs: Date Time Temp Pulse Resp B/P (MAP) Pulse Ox O2 Delivery O2 Flow Rate FiO2 09/25/17 07:18 100 20 91 Nasal Cannula 2.0 09/25/17 00:49 Nasal Cannula 2.0 09/25/17 00:00 36.8 103 18 147/84 (105) 92 2.0 09/24/17 20:00 94 Nasal Cannula 2.0 09/24/17 19:37 98 20 94 Nasal Cannula 2.0 09/24/17 18:49 37.4 97 18 156/86 (109) 95 Nasal Cannula 2.0 09/24/17 16:00 37.1 97 24 143/87 (105) 92 Nasal Cannula 2.0 09/24/17 16:00 94 Nasal Cannula 09/24/17 15:00 93 20 93 Nasal Cannula 2.0 09/24/17 14:00 99 18 160/87 (111) 94 Nasal Cannula 2.0 09/24/17 12:00 37.4 105 23 145/86 (105) 91 Nasal Cannula 2.0 09/24/17 12:00 91 Nasal Cannula 09/24/17 11:30 100 20 95 Nasal Cannula 2.0 09/24/17 10:00 103 22 143/88 (106) 91 Nasal Cannula 2.0 Lab Results: Results Past 24 Hours Test 09/24/17 11:42 09/25/17 03:50 09/25/17 04:08 Range/Units Bedside Glucose 199 70-99 mg/dl Stool Occult Blood POSITIVE NEGATIVE White Blood Count 6.05 4.8-10.8 K/uL Red Blood Count 4.30 4.7-6.1 M/uL Hemoglobin 12.1 14.0-18.0 g/dL Hematocrit 35.5 42-52 % Mean Corpuscular Volume 82.6 80-100 fL Mean Corpuscular Hemoglobin 28.1 25-34 pg Mean Corpuscular Hemoglobin Concent 34.1 32-36 g/dl Platelet Count 66 130-400 K/uL Mean Platelet Volume 10.5 7.4-10.4 fL Neutrophils (%) (Auto) 71.9 % Lymphocytes (%) (Auto) 10.2 % Monocytes (%) (Auto) 17.2 % Eosinophils (%) (Auto) 0.2 % Basophils (%) (Auto) 0.2 % Neutrophils # (Auto) 4.35 1.4-6.5 K/uL Lymphocytes # (Auto) 0.62 1.2-3.4 K/uL Monocytes # (Auto) 1.04 0.11-0.59 K/uL Eosinophils # (Auto) 0.01 0-0.5 K/uL Basophils # (Auto) 0.01 0-0.2 K/uL RDW Standard Deviation 43.2 36.4-46.3 fL RDW Coefficient of Variation 14.3 11.5-14.5 % Immature Granulocyte % (Auto) 0.3 % Immature Granulocyte # (Auto) 0.02 0.00-0.02 K/uL Prothrombin Time 10.7 9.0-12.0 SECONDS Prothromb Time International Ratio 1.0 0.9-1.1 Activated Partial Thromboplast Time 34.6 21.0-31.0 SECONDS Partial Thromboplastin Ratio 1.3 Sodium Level 136 136-145 mmol/L Potassium Level 4.2 3.5-5.1 mmol/L Chloride Level 99 98-107 mmol/L Carbon Dioxide Level 24 21-32 mmol/L Anion Gap 13.0 3-11 mmol/L Blood Urea Nitrogen 62 7-18 mg/dl Creatinine 9.58 0.60-1.40 mg/dl Est Creatinine Clear Calc Drug Dose 9.9 ml/min Estimated GFR () 6.1 Estimated GFR (Non- 5.3 BUN/Creatinine Ratio 6.5 10-20 Random Glucose 88 70-99 mg/dl Calcium Level 6.6 8.5-10.1 mg/dl Magnesium Level 2.1 1.8-2.4 mg/dl Total Bilirubin 0.6 0.2-1 mg/dl Aspartate Amino Transf (AST/SGOT) 781 15-37 U/L Alanine Aminotransferase (ALT/SGPT) 190 12-78 U/L Alkaline Phosphatase 59 45-117 U/L Total Creatine Kinase 55628 39-308 U/L Total Protein 5.1 6.4-8.2 gm/dl Albumin 2.0 3.4-5.0 gm/dl Globulin 3.1 2.5-4.0 gm/dl Albumin/Globulin Ratio 0.6 0.9-2
[2017-09-25] MEDS: ATORVASTATIN 40 MG TAB PO SCH (08:00)
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
[2017-09-25 12:08] LABS: HEMATOCRIT 34.3 % (42-52); HEMOGLOBIN 11.8 g/dL (14.0-18.0)
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
[2017-09-26] MEDS: ALBUT/IPRATROP 3MG/0.5MG NEB 3 ML VIAL INH SCH (07:23)
[2017-09-26 07:24] VITALS: PULSE 56; O2SAT 94
[2017-09-26] MEDS: ATORVASTATIN 40 MG TAB PO SCH ×2 (08:30→08:31)
[2017-09-26 10:06] VITALS: BP 144/87; PULSE 56; TEMP 36.8; O2SAT 94
[2017-09-26] MEDS ORDERED: LORA-741 PO (10:20)
[2017-09-26] MEDS ORDERED: ONDA4TAB65 PO (10:20)
[2017-09-26] MEDS ORDERED: OXYC10SO PO (10:20)
--- NOTE | 2017-09-26 10:22 | Discharge Instructions ---
Discharge Instructions Date of Service Sep 26, 2017. Admission Reason for Admission: ARF Discharge Discharge Diagnosis / Problem: ARF, RHABDOMYOLYSIS, CVA, GI BLEED Discharge Goals Goal(s): Decrease discomfort Activity Recommendations Activity Limitations: resume your previous activity ( TOLERATED) . Instructions / Follow-Up Instructions / Follow-Up FOLLOWUP WITH PCP NEEDED. Current Hospital Diet Patient's current hospital diet: AHA Diet (Heart Healthy), Renal Diet Discharge Diet Recommended Diet: AHA Diet (Heart Healthy), Renal Diet Pending Studies Studies pending at discharge: no Laboratory Results Lipid Panel Test 09/22/17 04:33 Range/Units Triglycerides Level 102 0-150 mg/dl Cholesterol Level 89 0-200 mg/dl HDL Cholesterol 42 mg/dl Cholesterol/HDL Ratio 2.1 LDL Cholesterol, Calculated 27 mg/dl Medical Emergencies . Who to Call and When: Medical Emergencies: If at any time you feel your situation is an emergency, please call 911 immediately. . Non-Emergent Contact Non-Emergency issues call your: Primary Care Provider . . "Provider Documentation" section prepared by [facility]. . VTE Core Measure Inpt VTE Proph given/why not?: SCD's
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
== END 2017-09-26 11:20 | disposition hospice, home (50) | DRG 64 ==
LOC: C.EDA 18:57 → C.MED 22:44 → ENRESERV 23:10 → C.MSICU 09-22 12:05 → ENRESERV 09-22 12:13 → C.4E 09-24 18:04
PROVIDERS: ADMIT Internal Medicine; ATTEND Internal Medicine
PROC: 05HM33Z Insertion of Infusion Device into Right Internal Jugular Vein, Percutaneous Approach (ICD-10-PCS; principal; 2017-09-22)
DX: I63.8 Other cerebral infarction (principal); N17.0 Acute kidney failure with tubular necrosis; I69.354 Hemiplegia and hemiparesis following cerebral infarction affecting left non-dominant side; M62.82 Rhabdomyolysis; N39.0 Urinary tract infection, site not specified; K81.0 Acute cholecystitis; K92.1 Melena; R47.1 Dysarthria and anarthria; D69.6 Thrombocytopenia, unspecified; R04.0 Epistaxis; S70.01XA Contusion of right hip, initial encounter; Z51.5 Encounter for palliative care; Z66 Do not resuscitate; Z87.891 Personal history of nicotine dependence; Z89.202 Acquired absence of left upper limb, unspecified level; W19.XXXA Unspecified fall, initial encounter; Y92.003 Bedroom of unspecified non-institutional (private) residence as the place of occurrence of the external cause